=== PATIENT | female | born 1960 | race Two or more races ===

== ENCOUNTER 2020-07-12 10:17 | Outpatient (REF) | payer MEDICARE, MEDICAID, SELFPAY | END 2020-07-12 10:18 | disposition home or self-care (01) | LOC: HO.BBR 10:17 | PROVIDERS: PCP Internal Medicine; Visit Provider Internal Medicine Medical Oncology | DX: D75.1 Secondary polycythemia (principal) | CPT/HCPCS: 85018; 99195 ==

== ENCOUNTER 2020-07-22 10:16 | Outpatient (REF) | payer MEDICARE, MEDICAID, SELFPAY ==
[2020-07-22 11:11] LABS: Hemoglobin 12.4 g/dl (12.0-16.0); Mean Corpuscular HGB Conc 32.6 g/dl (31.0-35.0); Mean Platelet Volume 9.1 fL (9.4-12.3); Platelet Count 268 X10*3/uL (160-400); Red Blood Count 4.13 X10*6/uL (4.20-5.50); Red Cell Distribution Width 13.7 % (11.0-16.0); White Blood Count 3.4 X10*3/uL (4.8-10.8)
[2020-07-22 11:37] LABS: C Reactive Protein 3.93 mg/dL (< or = 0.50)
[2020-07-22 11:38] LABS: Anion Gap 13 (12-20); Blood Urea Nitrogen 9 mg/dL (9-16); Calcium 8.7 mg/dL (8.4-10.2); Carbon Dioxide 28 mmol/L (22-29); Chloride 105 mmol/L (96-108); Estimated Glomerular Filt Rate > 60; Glucose Random 111 mg/dL (60-115); Potassium 4.3 mmol/l (3.3-5.1); Sodium 142 mmol/L (135-145)
[2020-07-22 13:01] LABS: Erythrocyte Sedimentation Rate 37 MM/HR (0-20)
== END 2020-07-22 10:17 | disposition home or self-care (01) ==
LOC: HO.MDS 10:16
PROVIDERS: PCP Internal Medicine; Visit Provider Internal Medicine Gastroenterology
DX: K50.80 Crohn's disease of both small and large intestine without complications (principal)
CPT/HCPCS: 36415; 80048; 85027; 85652; 86140; 96365; 96367; J3380

== ENCOUNTER 2020-09-02 10:30 | Outpatient (REF) | payer MEDICARE, MEDICAID, SELFPAY ==
[2020-09-02 10:54] LABS: Hematocrit 44.1 % (37-47); Hemoglobin 14.5 g/dl (12.0-16.0); Mean Corpuscular HGB Conc 32.9 g/dl (31.0-35.0); Mean Corpuscular Hemoglobin 29.2 pg (27.0-33.0); Mean Corpuscular Volume 88.9 fL (80-98); Mean Platelet Volume 9.2 fL (9.4-12.3); Platelet Count 282 X10*3/uL (160-400); Red Blood Count 4.96 X10*6/uL (4.20-5.50)
[2020-09-02 11:23] LABS: Alanine Aminotransferase 12 U/L (0-31); Albumin Level 4.1 g/dL (3.5-5.0); Alkaline Phosphatase 80 U/L (39-117); Anion Gap 13 (12-20); Aspartate Amino Transferase 14 U/L (5-31); Bilirubin Total 0.7 mg/dL (0.0-1.0); Blood Urea Nitrogen 10 mg/dL (9-16); C Reactive Protein 0.89 mg/dL (< or = 0.50); Calcium 8.9 mg/dL (8.4-10.2); Carbon Dioxide 24 mmol/L (22-29); Chloride 107 mmol/L (96-108); Estimated Glomerular Filt Rate > 60; Glucose Random 95 mg/dL (60-115); Potassium 3.9 mmol/l (3.3-5.1); Sodium 140 mmol/L (135-145); Total Protein 6.9 g/dL (6.5-8.0)
[2020-09-02 11:32] LABS: Erythrocyte Sedimentation Rate 12 MM/HR (0-20)
== END 2020-09-02 10:31 | disposition home or self-care (01) ==
LOC: HO.MDS 10:30
PROVIDERS: PCP Internal Medicine; Visit Provider Internal Medicine Gastroenterology
DX: K50.90 Crohn's disease, unspecified, without complications (principal)
CPT/HCPCS: 36415; 80053; 85027; 85652; 86140; 96365; J3380

== ENCOUNTER 2020-09-08 10:45 | Outpatient (REF) | payer MEDICARE, MEDICAID, SELFPAY | END 2020-09-08 10:46 | disposition home or self-care (01) | LOC: HO.BBR 10:45 | PROVIDERS: Visit Provider Internal Medicine Medical Oncology | DX: D75.1 Secondary polycythemia (principal) | CPT/HCPCS: 85014; 85018; 99195 ==

== ENCOUNTER 2020-10-17 11:34 | Outpatient (REF) | payer MEDICARE, MEDICAID, SELFPAY | END 2020-10-17 11:35 | disposition home or self-care (01) | LOC: HO.BBR 11:34 | PROVIDERS: Visit Provider Internal Medicine Medical Oncology | DX: Z13.89 Encounter for screening for other disorder (principal) | CPT/HCPCS: 36415; 85018; 96365; 99195 ==

== ENCOUNTER 2020-10-17 12:30 | Outpatient (REF) | payer MEDICARE, MEDICAID, SELFPAY ==
[2020-10-17 12:56] LABS: Hematocrit 43.5 % (37-47); Hemoglobin 14.2 g/dl (12.0-16.0); Mean Corpuscular HGB Conc 32.6 g/dl (31.0-35.0); Mean Corpuscular Hemoglobin 28.4 pg (27.0-33.0); Mean Platelet Volume 9.5 fL (9.4-12.3); Platelet Count 320 X10*3/uL (160-400); Red Cell Distribution Width 15.1 % (11.0-16.0)
[2020-10-17 13:17] LABS: Alanine Aminotransferase 9 U/L (0-31); Albumin Level 4.1 g/dL (3.5-5.0); Alkaline Phosphatase 78 U/L (39-117); Anion Gap 14 (12-20); Aspartate Amino Transferase 12 U/L (5-31); Bilirubin Total 0.5 mg/dL (0.0-1.0); Blood Urea Nitrogen 13 mg/dL (9-16); C Reactive Protein 0.49 mg/dL (< or = 0.50); Calcium 9.6 mg/dL (8.4-10.2); Carbon Dioxide 26 mmol/L (22-29); Chloride 106 mmol/L (96-108); Estimated Glomerular Filt Rate > 60; Glucose Random 97 mg/dL (60-115); Potassium 4.5 mmol/l (3.3-5.1); Sodium 141 mmol/L (135-145)
[2020-10-17 13:38] LABS: Erythrocyte Sedimentation Rate 7 MM/HR (0-20)
== END 2020-10-17 12:31 | disposition home or self-care (01) ==
LOC: HO.MDS 12:30
PROVIDERS: Visit Provider Internal Medicine Gastroenterology
DX: K50.80 Crohn's disease of both small and large intestine without complications (principal)
CPT/HCPCS: 36415; 80053; 85018; 85027; 85652; 86140; 96365; 99195; J3380

== ENCOUNTER 2020-11-16 10:52 | Outpatient (REF) | payer MEDICARE, MEDICAID, SELFPAY | END 2020-11-16 10:53 | disposition home or self-care (01) | LOC: HO.BBR 10:52 | PROVIDERS: Visit Provider Internal Medicine Medical Oncology | DX: D75.1 Secondary polycythemia (principal) | CPT/HCPCS: 36415; 85018 ==

== ENCOUNTER 2020-12-07 10:55 | Outpatient (REF) | payer MEDICARE, MEDICAID, SELFPAY ==
[2020-12-07 11:24] LABS: Hematocrit 40.8 % (37-47); Hemoglobin 13.3 g/dl (12.0-16.0); Mean Corpuscular HGB Conc 32.6 g/dl (31.0-35.0); Mean Corpuscular Hemoglobin 28.2 pg (27.0-33.0); Mean Corpuscular Volume 86.4 fL (80-98); Mean Platelet Volume 9.1 fL (9.4-12.3); Platelet Count 243 X10*3/uL (160-400); Red Blood Count 4.72 X10*6/uL (4.20-5.50); Red Cell Distribution Width 15.9 % (11.0-16.0); White Blood Count 5.2 X10*3/uL (4.8-10.8)
[2020-12-07 11:54] LABS: Alanine Aminotransferase 11 U/L (0-31); Alkaline Phosphatase 84 U/L (39-117); Anion Gap 11 (12-20); Aspartate Amino Transferase 13 U/L (5-31); Bilirubin Total 0.4 mg/dL (0.0-1.0); Blood Urea Nitrogen 15 mg/dL (9-16); C Reactive Protein 0.42 mg/dL (< or = 0.50); Calcium 9.6 mg/dL (8.4-10.2); Carbon Dioxide 26 mmol/L (22-29); Chloride 108 mmol/L (96-108); Estimated Glomerular Filt Rate > 60; Glucose Random 88 mg/dL (60-115); Potassium 3.9 mmol/L (3.3-5.1); Sodium 141 mmol/L (135-145); Total Protein 6.8 g/dL (6.5-8.0)
[2020-12-07 12:44] LABS: Erythrocyte Sedimentation Rate 7 MM/HR (0-20)
== END 2020-12-07 10:56 | disposition home or self-care (01) ==
LOC: HO.MDS 10:55
PROVIDERS: Visit Provider Internal Medicine Gastroenterology
DX: K50.80 Crohn's disease of both small and large intestine without complications (principal)
CPT/HCPCS: 36415; 80053; 85027; 85652; 86140; 96365; J3380

== ENCOUNTER 2020-12-15 11:52 | Outpatient (REF) | payer MEDICARE, MEDICAID, SELFPAY | END 2020-12-15 11:53 | disposition home or self-care (01) | LOC: HO.BBR 11:52 | PROVIDERS: Visit Provider Internal Medicine Medical Oncology | DX: D75.1 Secondary polycythemia (principal) | CPT/HCPCS: 36415; 85018; 99195 ==

== ENCOUNTER 2021-01-11 10:02 | Outpatient (REF) | payer MEDICARE, MEDICAID, SELFPAY | END 2021-01-11 10:03 | disposition home or self-care (01) | LOC: HO.BBR 10:02 | PROVIDERS: Visit Provider Internal Medicine Medical Oncology | DX: D75.1 Secondary polycythemia (principal) | CPT/HCPCS: 36415; 85018 ==

== ENCOUNTER 2021-01-26 12:00 | Outpatient (REF) | payer MEDICARE, MEDICAID, SELFPAY ==
[2021-01-26 12:50] LABS: Alanine Aminotransferase 13 U/L (0-31); Albumin Level 3.9 g/dL (3.5-5.0); Alkaline Phosphatase 87 U/L (39-117); Anion Gap 11 (12-20); Aspartate Amino Transferase 15 U/L (5-31); Bilirubin Total 0.6 mg/dL (0.0-1.0); Blood Urea Nitrogen 13 mg/dL (9-16); C Reactive Protein 0.49 mg/dL (< or = 0.50); Carbon Dioxide 24 mmol/L (22-29); Chloride 110 mmol/L (96-108); Estimated Glomerular Filt Rate > 60; Glucose Random 92 mg/dL (60-115); Potassium 4.2 mmol/L (3.3-5.1); Sodium 141 mmol/L (135-145); Total Protein 6.7 g/dL (6.5-8.0)
[2021-01-26 13:18] LABS: Erythrocyte Sedimentation Rate 12 MM/HR (0-20)
== END 2021-01-26 12:01 | disposition home or self-care (01) ==
LOC: HO.MDS 12:00
PROVIDERS: Visit Provider Internal Medicine Gastroenterology
DX: K50.80 Crohn's disease of both small and large intestine without complications (principal)
CPT/HCPCS: 36415; 80053; 85652; 86140; 96365; 96375; J3380

== ENCOUNTER 2021-02-09 11:04 | Outpatient (REF) | payer MEDICARE, MEDICAID, SELFPAY | END 2021-02-09 11:05 | disposition home or self-care (01) | LOC: HO.BBR 11:04 | PROVIDERS: Visit Provider Internal Medicine Medical Oncology | DX: D75.1 Secondary polycythemia (principal) | CPT/HCPCS: 36415; 85018 ==

== ENCOUNTER 2021-03-08 09:50 | Outpatient (REF) | payer MEDICARE, MEDICAID, SELFPAY | END 2021-03-08 09:51 | disposition home or self-care (01) | LOC: HO.BBR 09:50 | PROVIDERS: Visit Provider Internal Medicine Medical Oncology | DX: D75.1 Secondary polycythemia (principal) | CPT/HCPCS: 85014; 85018; 99195 ==

== ENCOUNTER 2021-03-09 11:57 | Outpatient (REF) | payer MEDICARE, MEDICAID, SELFPAY ==
[2021-03-09 12:17] LABS: Hemoglobin 13.4 g/dl (12.0-16.0); Mean Corpuscular HGB Conc 32.7 g/dl (31.0-35.0); Mean Corpuscular Hemoglobin 28.6 pg (27.0-33.0); Mean Corpuscular Volume 87.6 fL (80-98); Mean Platelet Volume 9.4 fL (9.4-12.3); Platelet Count 277 X10*3/uL (160-400); Red Blood Count 4.68 X10*6/uL (4.20-5.50); Red Cell Distribution Width 16.1 % (11.0-16.0); White Blood Count 5.4 X10*3/uL (4.8-10.8)
[2021-03-09 13:01] LABS: Erythrocyte Sedimentation Rate 10 MM/HR (0-20)
[2021-03-09 13:34] LABS: Alanine Aminotransferase < 6 U/L (0-31); Albumin Level 4.1 g/dL (3.5-5.0); Alkaline Phosphatase 90 U/L (39-117); Anion Gap 9 (12-20); Aspartate Amino Transferase 11 U/L (5-31); Bilirubin Total 0.3 mg/dL (0.0-1.0); Blood Urea Nitrogen 10 mg/dL (9-16); C Reactive Protein 0.43 mg/dL (< or = 0.50); Calcium 9.5 mg/dL (8.4-10.2); Carbon Dioxide 29 mmol/L (22-29); Chloride 107 mmol/L (96-108); Estimated Glomerular Filt Rate > 60; Glucose Random 96 mg/dL (60-115); Potassium 4.3 mmol/L (3.3-5.1); Sodium 141 mmol/L (135-145); Total Protein 6.8 g/dL (6.5-8.0)
== END 2021-03-09 11:58 | disposition home or self-care (01) ==
LOC: HO.MDS 11:57
PROVIDERS: Visit Provider Internal Medicine Gastroenterology
DX: K50.80 Crohn's disease of both small and large intestine without complications (principal)
CPT/HCPCS: 36415; 80053; 85027; 85652; 86140; 86481; 96365; 96375; J3380

== ENCOUNTER 2021-04-07 09:58 | Outpatient (REF) | payer MEDICARE, MEDICAID, SELFPAY | END 2021-04-07 09:59 | disposition home or self-care (01) | LOC: HO.BBR 09:58 | PROVIDERS: Visit Provider Internal Medicine Medical Oncology | DX: D75.1 Secondary polycythemia (principal) | CPT/HCPCS: 36415; 85018 ==

== ENCOUNTER 2021-05-01 10:57 | Outpatient (REF) | payer MEDICARE, MEDICAID, SELFPAY ==
[2021-05-01 11:30] LABS: Hematocrit 42.1 % (37-47); Hemoglobin 13.5 g/dl (12.0-16.0); Mean Corpuscular HGB Conc 32.1 g/dl (31.0-35.0); Mean Corpuscular Volume 87.2 fL (80-98); Mean Platelet Volume 9.6 fL (9.4-12.3); Platelet Count 278 X10*3/uL (160-400); Red Blood Count 4.83 X10*6/uL (4.20-5.50); Red Cell Distribution Width 16.1 % (11.0-16.0); White Blood Count 5.3 X10*3/uL (4.8-10.8)
[2021-05-01 11:51] LABS: Alanine Aminotransferase 10 U/L (0-31); Albumin Level 3.8 g/dL (3.5-5.0); Alkaline Phosphatase 83 U/L (39-117); Anion Gap 13 (12-20); Aspartate Amino Transferase 14 U/L (5-31); Bilirubin Total 0.3 mg/dL (0.0-1.0); Blood Urea Nitrogen 11 mg/dL (9-16); Calcium 8.9 mg/dL (8.4-10.2); Carbon Dioxide 24 mmol/L (22-29); Chloride 108 mmol/L (96-108); Estimated Glomerular Filt Rate > 60; Glucose Random 100 mg/dL (60-115); Potassium 4.6 mmol/L (3.3-5.1); Sodium 140 mmol/L (135-145); Total Protein 6.5 g/dL (6.5-8.0)
[2021-05-01 12:20] LABS: Erythrocyte Sedimentation Rate 7 MM/HR (0-20)
[2021-05-03 20:10] LABS: TS Negative Control Passed; TS Panel A 1; TS Panel B 0; TS Positive Control Passed; TSpotTB Negative (SeeBelow)
== END 2021-05-01 10:58 | disposition home or self-care (01) ==
LOC: HO.MDS 10:57
PROVIDERS: Visit Provider Internal Medicine Gastroenterology
DX: K50.90 Crohn's disease, unspecified, without complications (principal)
CPT/HCPCS: 36415; 80053; 85027; 85652; 86140; 86481; 96365; J3380

== ENCOUNTER → 2021-05-02 10:42 | Outpatient (BNVA) | payer MEDICARE, MEDICAID, SELFPAY | PROVIDERS: Visit Provider Internal Medicine Gastroenterology | DX: R09.89 Other specified symptoms and signs involving the circulatory and respiratory systems (principal) | CPT/HCPCS: 99212 ==

== ENCOUNTER 2021-05-04 09:32 | Outpatient (REF) | payer MEDICARE, MEDICAID, SELFPAY ==
--- NOTE | ~2021-05-04 | FL_ITS ---
EXAMINATION: FL BARIUM SWALLOW CLINICAL INFORMATION: Abdominal pain. COMPARISON: None TECHNIQUE: Barium swallow examination is performed using fluoroscopic evaluation in addition to multiple fluoroscopic spot views. The patient is imaged both upright and prone and using both thick and thin sulfate along with effervescent granules. Fluoroscopy time: 1.8 minutes DAP: 10.885 Gycm2 Images: 48 FINDINGS: Following oral administration of thick barium and effervescent granules, there is normal propagation of bolus from the oral cavity through the pharynx, esophagus into stomach without any evidence of obstruction, narrowing or stricture. There is mild mural thickening involving the posterior distal esophagus at the GE junction suspicious for edema or underlying lesion. On oral administration of thin barium in prone lying position, there is good distention of the esophagus without narrowing. There is a small reducible hiatal hernia without reflux. The rest of the visualized mucosal pattern of the esophagus is unremarkable. FL/FL barium swallow IMPRESSION: Small sliding hiatal hernia without hiatal hernia. There is a small irregularity along the distal esophageal wall, question underlying lesion versus small hiatal hernia. No gastroesophageal reflux visualized. No esophageal obstruction.
== END 2021-05-04 09:33 | disposition home or self-care (01) ==
LOC: HO.XRAY 09:32
PROVIDERS: Visit Provider Internal Medicine Gastroenterology
DX: R09.89 Other specified symptoms and signs involving the circulatory and respiratory systems (principal)
CPT/HCPCS: 74220

== ENCOUNTER 2021-05-08 10:54 | Outpatient (REF) | payer MEDICARE, MEDICAID, SELFPAY | END 2021-05-08 10:55 | disposition home or self-care (01) | LOC: HO.BBR 10:54 | PROVIDERS: Visit Provider Internal Medicine Medical Oncology | DX: D75.1 Secondary polycythemia (principal) | CPT/HCPCS: 36415; 85018; 99195 ==

== ENCOUNTER 2021-05-30 12:09 | Outpatient (REF) | payer MEDICARE, MEDICAID, SELFPAY ==
--- NOTE | ~2021-05-30 | CT_ITS ---
EXAMINATION: CT ENTEROGRAPHY ABDOMEN AND PELVIS WITH CONTRAST CLINICAL INFORMATION: Periumbilical pain. COMPARISON: Previous CT scan January 2019 and abdominal ultrasound March 2020 TECHNIQUE: Study performed with oral VoLumen (1350 mL) and 480 mL of water to distend the abdomen. The patient was injected with 85 mL Omnipaque 350 intravenous contrast which was administered without adverse effect. Coronal and sagittal reformatted images were obtained at the technologist's workstation. This CT examination was performed using dose optimization techniques as appropriate, variously including the following: *Automated exposure control *Adjustment of mA and/or kV according to patient size (this includes techniques or standardized protocols for targeted exams where dose is matched to indication/reason for exam; i.e. extremities or head) *Use of iterative reconstruction technique DLP: 386 mGy-cm FINDINGS: GASTROINTESTINAL FINDINGS: Stomach: Well-distended and normal in appearance. Small intestine: Satisfactorily distended and normal in appearance. Large intestine: There is question of mild wall thickening of the distal colon/colitis. No perirectal changes demonstrated. The appendix is normal. Additional findings: No abnormal enhancement of the vasa recta or significant mesenteric or retroperitoneal lymphadenopathy is seen. No abdominal abscess or fistulous tract demonstrated. ABDOMINAL AND PELVIC CT FINDINGS: Liver, gallbladder, biliary tract: There is a 1 cm enhancing lesion in the right lobe of the liver that is stable and probably represents a benign hemangioma. No other focal liver lesion is seen. There is a 5 mm round high attenuation area in the fundus of the gallbladder questionable for a polyp or phrygian cap. This is unchanged from previous CT scan. Pancreas: Normal. Spleen: There is a 2.6 cm cyst spleen and second 5 mm cyst in the spleen that is stable. Adrenal glands and kidneys: There is a stable 1.6 x 2.8 cm left adrenal nodule. This has negative Hounsfield units pre-IV contrast consistent with a benign lipid rich adenoma. There is a small 1 to 2 mm stone in the upper pole of the left kidney. There is a small 1 cm cyst in the upper pole of the left kidney. The right kidney is unremarkable. The collecting systems are normal. Ureters and bladder: Normal. The uterus appears to have been removed. No pelvic mass is seen. Lymphovascular structures: Normal. Bones: Normal. Lung bases: Normal. CT/CT enterography IMPRESSION: Question mild wall thickening of the colon/colitis. Otherwise stable findings from January [address] scan.
[2021-05-30] MEDS: iohexoL 350 MG/ML 100 ML INFUS..BTL IV (13:59)
[2021-05-30] MEDS: Sorbitol/Mannit/Xanth Imaging 500 ML LIQUID 1500 ML PO (14:00)
== END 2021-05-30 12:10 | disposition home or self-care (01) ==
LOC: HO.US 12:09
PROVIDERS: PCP Internal Medicine; Visit Provider Internal Medicine Gastroenterology
DX: R10.33 Periumbilical pain (principal)
CPT/HCPCS: 74177; Q9967

== ENCOUNTER 2021-06-07 11:57 | Outpatient (REF) | payer MEDICARE, MEDICAID, SELFPAY | END 2021-06-07 11:58 | disposition home or self-care (01) | LOC: HO.BBR 11:57 | PROVIDERS: Visit Provider Internal Medicine Medical Oncology | DX: D75.1 Secondary polycythemia (principal) | CPT/HCPCS: 85014; 85018; 99195 ==

== ENCOUNTER 2021-06-08 13:29 | Outpatient (REF) | payer MEDICARE, MEDICAID, SELFPAY ==
[2021-06-14 01:26] LABS: Calprotectin, Fecal 17 mcg/g
== END 2021-06-08 13:30 | disposition home or self-care (01) ==
LOC: HO.LNP 13:29
PROVIDERS: Visit Provider Internal Medicine Gastroenterology
DX: K50.919 Crohn's disease, unspecified, with unspecified complications (principal)
CPT/HCPCS: 83993; 87045; 87046; 87493

== ENCOUNTER 2021-06-12 11:25 | Outpatient (REF) | payer MEDICARE, MEDICAID, SELFPAY ==
[2021-06-12 11:49] LABS: MANUAL DIFF FLAG NO
[2021-06-12 11:53] LABS: Basophils Percent Auto 0.5 % (0-2); Eosinophils Absolute Auto 0.1 X10*3/uL (0.0-0.4); Eosinophils Percent Auto 1.6 % (0-4); Hemoglobin 14.2 g/dl (12.0-16.0); Imm Gran Abs Auto 0.01 X10*3/uL (0.00-0.03); Imm Gran Pct Auto 0.2 % (0.0-0.4); Lymphocytes Absolute Auto 1.3 X10*3/uL (1.2-4.9); Lymphocytes Percent Auto 21.1 % (20-40); Mean Corpuscular Hemoglobin 28.6 pg (27.0-33.0); Mean Corpuscular Volume 86.5 fL (80-98); Mean Platelet Volume 9.2 fL (9.4-12.3); Monocytes Absolute Auto 0.3 X10*3/uL (0.1-1.2); Neutrophils Absolute Auto 4.5 X10*3/uL (2.0-8.3); Neutrophils Percent Auto 71.6 % (45-73); Platelet Count 238 X10*3/uL (160-400); Red Blood Count 4.97 X10*6/uL (4.20-5.50); Red Cell Distribution Width 16.2 % (11.0-16.0); White Blood Count 6.2 X10*3/uL (4.8-10.8)
[2021-06-12 12:08] LABS: C Reactive Protein 0.63 mg/dL (< or = 0.50)
[2021-06-12 12:10] LABS: Alanine Aminotransferase 7 U/L (0-31); Alkaline Phosphatase 86 U/L (39-117); Anion Gap 10 (12-20); Aspartate Amino Transferase 12 U/L (5-31); Bilirubin Total 0.4 mg/dL (0.0-1.0); Blood Urea Nitrogen 10 mg/dL (9-16); Calcium 9.3 mg/dL (8.4-10.2); Carbon Dioxide 27 mmol/L (22-29); Chloride 110 mmol/L (96-108); Estimated Glomerular Filt Rate > 60; Glucose Random 93 mg/dL (60-115); Potassium 4.6 mmol/L (3.3-5.1); Sodium 142 mmol/L (135-145); Total Protein 6.9 g/dL (6.5-8.0)
[2021-06-12 12:52] LABS: Erythrocyte Sedimentation Rate 11 MM/HR (0-20)
== END 2021-06-12 11:26 | disposition home or self-care (01) ==
LOC: HO.MDS 11:25
PROVIDERS: Visit Provider Internal Medicine Gastroenterology
DX: K50.90 Crohn's disease, unspecified, without complications (principal)
CPT/HCPCS: 36415; 80053; 85025; 85652; 86140; 96365; 96375; J1200; J3380

== ENCOUNTER 2021-07-07 12:03 | Outpatient (REF) | payer MEDICARE, MEDICAID, SELFPAY | END 2021-07-07 12:04 | disposition home or self-care (01) | LOC: HO.BBR 12:03 | PROVIDERS: PCP Internal Medicine; Visit Provider Internal Medicine Medical Oncology | DX: D75.1 Secondary polycythemia (principal) | CPT/HCPCS: 85018; 99195 ==

== ENCOUNTER 2021-07-24 13:41 | Outpatient (REF) | payer MEDICARE, MEDICAID, SELFPAY ==
[2021-07-24 14:04] LABS: Hematocrit 40.2 % (37-47); Hemoglobin 13.5 g/dl (12.0-16.0); Mean Corpuscular HGB Conc 33.6 g/dl (31.0-35.0); Mean Corpuscular Hemoglobin 28.7 pg (27.0-33.0); Mean Corpuscular Volume 85.5 fL (80-98); Mean Platelet Volume 9.4 fL (9.4-12.3); Platelet Count 256 X10*3/uL (160-400); Red Cell Distribution Width 15.9 % (11.0-16.0); White Blood Count 5.7 X10*3/uL (4.8-10.8)
[2021-07-24 14:21] LABS: Alanine Aminotransferase 8 U/L (0-31); Alkaline Phosphatase 80 U/L (39-117); Anion Gap 10 (12-20); Aspartate Amino Transferase 11 U/L (5-31); Bilirubin Total 0.5 mg/dL (0.0-1.0); Blood Urea Nitrogen 9 mg/dL (9-16); C Reactive Protein 0.26 mg/dL (< or = 0.50); Calcium 9.1 mg/dL (8.4-10.2); Carbon Dioxide 26 mmol/L (22-29); Chloride 109 mmol/L (96-108); Estimated Glomerular Filt Rate > 60; Glucose Random 102 mg/dL (60-115); Sodium 141 mmol/L (135-145); Total Protein 6.9 g/dL (6.5-8.0)
[2021-07-24 15:04] LABS: Erythrocyte Sedimentation Rate 10 MM/HR (0-20)
== END 2021-07-24 13:42 | disposition home or self-care (01) ==
LOC: HO.MDS 13:41
PROVIDERS: Visit Provider Internal Medicine Gastroenterology
DX: K50.90 Crohn's disease, unspecified, without complications (principal)
CPT/HCPCS: 36415; 80053; 85027; 85652; 86140; 96365; J1200; J3380

== ENCOUNTER → 2021-07-28 10:56 | Outpatient (BNVA) | payer MEDICARE, MEDICAID, SELFPAY | PROVIDERS: PCP Internal Medicine; Visit Provider Internal Medicine Gastroenterology | CPT/HCPCS: Q3014 ==

== ENCOUNTER 2021-08-09 10:56 | Outpatient (REF) | payer MEDICARE, MEDICAID, SELFPAY | END 2021-08-09 10:57 | disposition home or self-care (01) | LOC: HO.BBR 10:56 | PROVIDERS: Visit Provider Internal Medicine Medical Oncology | DX: D75.1 Secondary polycythemia (principal) | CPT/HCPCS: 85014; 85018; 99195 ==

== ENCOUNTER 2021-08-22 11:08 | Emergency (ER) | payer MEDICARE, MEDICAID, SELFPAY ==
[2021-08-22 12:01] VITALS: BP 111/73; PULSE 130; RESP 18; TEMP 37.6; O2SAT 98; BMI 26.9
== END 2021-08-22 20:00 | disposition left against medical advice (07) ==
PROVIDERS: Emergency Provider Emergency Medicine; PCP Internal Medicine
DX: R11.10 Vomiting, unspecified (principal); R42 Dizziness and giddiness
CPT/HCPCS: 99281

== ENCOUNTER 2021-09-05 12:29 | Outpatient (REF) | payer MEDICARE, MEDICAID, SELFPAY ==
[2021-09-05 13:21] LABS: MANUAL DIFF FLAG NO
[2021-09-05 13:24] LABS: Basophils Percent Auto 0.1 % (0-2); Eosinophils Absolute Auto 0.1 X10*3/uL (0.0-0.4); Eosinophils Percent Auto 1.7 % (0-4); Hematocrit 39.1 % (37.0-47.0); Hemoglobin 12.6 g/dl (12.0-16.0); Imm Gran Abs Auto 0.02 X10*3/uL (0.00-0.03); Imm Gran Pct Auto 0.2 % (0.0-0.4); Lymphocytes Absolute Auto 1.5 X10*3/uL (1.2-4.9); Mean Corpuscular HGB Conc 32.2 g/dl (31.0-35.0); Mean Corpuscular Hemoglobin 28.4 pg (27.0-33.0); Mean Corpuscular Volume 88.1 fL (80.0-98.0); Mean Platelet Volume 9.2 fL (9.4-12.3); Monocytes Absolute Auto 0.4 X10*3/uL (0.1-1.2); Monocytes Percent Auto 4.5 % (2-11); Neutrophils Percent Auto 74.5 % (45-73); Platelet Count 276 X10*3/uL (160-400); Red Blood Count 4.44 X10*6/uL (4.20-5.50); Red Cell Distribution Width 16.1 % (11.0-16.0); White Blood Count 8.1 X10*3/uL (4.8-10.8)
[2021-09-05 13:43] LABS: Alanine Aminotransferase 7 U/L (0-31); Albumin Level 3.8 g/dL (3.5-5.0); Alkaline Phosphatase 71 U/L (39-117); Anion Gap 11 (12-20); Aspartate Amino Transferase 12 U/L (5-31); Bilirubin Total 0.6 mg/dL (0.0-1.0); Blood Urea Nitrogen 10 mg/dL (9-16); C Reactive Protein 0.22 mg/dL (< or = 0.50); Calcium 9.3 mg/dL (8.4-10.2); Carbon Dioxide 26 mmol/L (22-29); Chloride 110 mmol/L (96-108); Estimated Glomerular Filt Rate > 60; Glucose Random 91 mg/dL (60-115); Potassium 4.2 mmol/L (3.3-5.1); Sodium 143 mmol/L (135-145); Total Protein 6.6 g/dL (6.5-8.0)
[2021-09-05 14:16] LABS: Erythrocyte Sedimentation Rate 11 MM/HR (0-20)
== END 2021-09-05 12:30 | disposition home or self-care (01) ==
LOC: HO.MDS 12:29
PROVIDERS: Visit Provider Internal Medicine Gastroenterology
DX: K50.90 Crohn's disease, unspecified, without complications (principal)
CPT/HCPCS: 36415; 80053; 85025; 85652; 86140; 96365; 96375; J1200; J3380

== ENCOUNTER 2021-11-01 09:11 | Day surgery (SDC) | payer MEDICARE, MEDICAID, SELFPAY ==
[2021-10-27 13:02] VITALS: BMI 26.9
--- NOTE | 2021-10-31 11:09 | P.CONAN_ITS ---
Documented by User: Birdie Danielson NP 10/31/21 11:11 HPI - Anesthesia Eval Consult details Narrative: 61yo F for Sigmoidoscopy Flexible, Upper Endoscopy PMFSH Active Problems Active Problems: All Active Problems (Updated 10/27/21 @ 12:57 by Dahiana Lehman, RN) Erythrocytosis (Acute) Globus sensation (Acute) Crohn's disease (Acute) Past Medical History Medical History Anxiety Back pain at L4-L5 level Crohn's disease Depression H/O hematuria Migraines Nausea and vomiting Neck pain Family History Family History Father No problems noted. Mother Hx of acute heart failure Surgical History Surgical History H/O brain surgery H/O hand surgery H/O removal of cyst History of colonoscopy History of partial hysterectomy Hx of breast reduction, elective Hx of endoscopy Social History Social History Household Members: Children Housing: House Are you a primary mall plant caretaker to a significant other at home: No Do you presently have visiting nurse or other home services: Yes ([employer] with [employer]) Patient Tobacco Use Status: Current everyday Tobacco user Tobacco use type: Cigarette Cigarettes Per Day: 2 Smoked in Last 30 Days: Yes Use of substances other than those prescribed or required for medical reasons: Yes Substance Use Type: Marijuana Substance Use Frequency: Daily Have you been hit, kicked, punched, or otherwise hurt by someone within the past year? If so, by whom?: No Are you DNR?: No Advance Directives: No Advance Directives Information Provided: Yes Advance Directives on File: No Recently lost weight without trying: Yes How much weight loss: 2-13 pounds Meds Allergies Allergy/AdvReac Type Severity Reaction Status Date / Time aspirin [ASA] Allergy Mild GI UPSET, Verified 10/27/21 13:02 nausea and vomiting Home Medications Medication Instructions Recorded Confirmed Last Taken Type fluticasone 2 puff 07/21/20 10/27/21 Unknown History propionate 110 INHALATION BID mcg/actuation HFA aerosol inhaler (Flovent HFA) galcanezumab-gnlm 120 mg SUBCUT 07/21/20 10/27/21 Unknown History 120 mg/mL QMONTH subcutaneous pen injector (Emgality Pen) omeprazole 40 mg 1 cap PO DAILY 07/21/20 10/27/21 Unknown History capsule,delayed release fluoride (sodium) 1 appl DENTAL 07/28/21 09/14/21 Unknown History 1.1 % dental gel DAILY (DentaGel) vedolizumab 300 300 mg IV Q6W 10/27/21 10/27/21 Unknown History mg intravenous solution (Entyvio) Exam Exam Date and Time: October 31, 2021 1109 Height,Weight and Vital Signs: Height 5 ft 2 in Weight 66.678 kg Pertinent Lab Results Pertinent Lab Results: Laboratory Tests 09/14/21 09/14/21 11:49 11:49 WBC 3.9 L Hgb 13.0 Hct 40.3 Plt Count 279 Sodium 143 Potassium 3.8 Chloride 110 H Carbon Dioxide 28 BUN 9 Creatinine 0.65 Assessment and Plan Assessment Anesthesia Assessment: Chart Reviewed Documented by User: Mela Strickland MD 11/01/21 10:59 [facility] Past Medical History Medical History Anxiety Back pain at L4-L5 level Crohn's disease Depression H/O hematuria Migraines Nausea and vomiting Neck pain Family History Family History Father No problems noted. 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 If so, by whom?: No Are you DNR?: No Advance Directives: No Advance Directives Information Provided: Yes Advance Directives on File: No Recently lost weight without trying: Yes How much weight loss: 2-13 pounds Meds Allergies Allergy/AdvReac Type Severity Reaction Status Date / Time aspirin [ASA] Allergy Mild GI UPSET, Verified 10/27/21 13:02 nausea and vomiting Home Medications Medication Instructions Recorded Confirmed Last Taken Type fluticasone 2 puff 07/21/20 10/27/21 Unknown History propionate 110 INHALATION BID mcg/actuation HFA aerosol inhaler (Flovent HFA) galcanezumab-gnlm 120 mg SUBCUT 07/21/20 10/27/21 Unknown History 120 mg/mL QMONTH subcutaneous pen injector (Emgality Pen) omeprazole 40 mg 1 cap PO DAILY 07/21/20 10/27/21 Unknown History capsule,delayed release fluoride (sodium) 1 appl DENTAL 07/28/21 09/14/21 Unknown History 1.1 % dental gel DAILY (DentaGel) vedolizumab 300 300 mg IV Q6W 10/27/21 10/27/21 Unknown History mg intravenous solution (Entyvio) Exam Airway Mallampati Class: II Neck ROM: Full Loose/Missing/Broken Teeth: Yes and Upper Heart: RRR Lungs: CTA Assessment and Plan Assessment Anesthesia Assessment: Anesthesia Plan Discussed Final Anesthetic Review History of Problems with Anesthesia: No NPO: Yes ASA Class: II Final Preanesthetic Review: Meds/Allgs Chart Reviewed, Consent Obtained/Reviewed and Anes Risks/Benef Reviewed Patient Risk: Low Procedure Risk: Low Anesthetic Plan Anesthetic Plan: MAC: Disposition: Standard PACU
[2021-11-01 09:57] VITALS: BP 112/65; PULSE 70; RESP 18; TEMP 36.2; O2SAT 99
[2021-11-01] MEDS: Sodium Phosphate,Mono-Dibasic 133 ML ENEMA 266 ML PR (10:22)
[2021-11-01] MEDS: Sodium Phosphate,Mono-Dibasic 133 ML ENEMA PR (10:24)
--- NOTE | 2021-11-01 10:38 | P.HPSUR_ITS ---
Pre-Procedural Eval Section A Date of Service: 11/01/21 Section B Chief Complaint: Crohns Disease,Dysphagia Relevant Family History (Specify if Yes): No Relevant Social History: Tobacco Use Present Medications: see Short Stay Collaborative assessment Medical History: Significant History (Anxiety Back pain at L4-L5 level Crohn's disease Depression H/O hematuria Migraines Nausea and vomiting Neck pain) History of Previous Operations: Relevant previous surgery/procedure and date(s) (H/O brain surgery H/O hand surgery H/O removal of cyst History of colonoscopy History of partial hysterectomy Hx of breast reduction, elective Hx of endoscopy) Allergies: Allergies Allergy/AdvReac Type Severity Reaction Status Date / Time aspirin [ASA] Allergy Mild GI UPSET, Verified 10/27/21 13:02 nausea and vomiting Review of Systems Sugical H&P ROS: Negative: Constitution, Cardiovascular, Respiratory, Neurological, Psychiatric, Hem-Onc, Allergic/Immunologic, Gastrointestinal, Genitourinary, Musculoskeletal, Integumentary, Endocrine and Eyes/Ears/Nose/Thro at Exam Surgical H&P Exam: Normal: HEENT, Normal: Heart, Normal: Lungs, Normal: Extremities, Normal: Abdomen, Normal: Skin and Normal: Neurological Plan Diagnosis/Plan: Unchanged I have reviewed the history and physical and performed a pertinent physical examination on my patient. No changes have occurred unless specified.
[2021-11-01] MEDS: Lactated Ringers 1,000 ML 100 ML IVCONT (10:47)
--- NOTE | 2021-11-01 11:09 | PM.OP ---
Brief Operative Note Date of Service: 11/01/21 Pre-op diagnosis: dysphagia, hx of crohns disease Post-op diagnosis: same Procedure: see op note Surgeon: Agustin Eden MD Anesthesia: MAC Was an Irrigating Pump Operator used for this Procedure?: No Estimated blood loss (mL): 0 Condition: stable Disposition: PACU
--- NOTE | 2021-11-01 11:09 | W.PM.OPN ---
Operative Note Operative Note Date of Service: 11/01/21 Narrative: Operative Information Procedure Description: EGD, Colonoscopy FLEXIBLE TRANSORAL UPPER GASTROINTESTINAL ENDOSCOPY AND Sigmoidoscopy PROCEDURE NOTE UPPER ENDOSCOPY Consent: Indications for the procedure and potential complications of bleeding, perforation, reaction to medications and missed diagnosis were discussed with the patient and informed consent was obtained. Instrument: Olympus GIF H 190 J mid size upper endoscope Monitoring: Vital signs and clinical assessment, continuous EKG monitoring, Pulse oximetry, Carbon Dioxide monitoring and blood pressure monitoring were done throughout the procedure. Procedure: The patient was placed in the left lateral decubitis position and pre-procedure medications were administered and a bite block was placed. The endoscope was inserted into the mouth and advanced under direct vision to the third part of duodenum. A careful inspection was made as the upper endoscope was withdrawn including a retroflexed examination of the proximal stomach; Findings and interventions are described below. Findings: Larynx:normal Esophagus: GE junction at 34 cm, diaphragm hiatus at 36 cm, consistent with 2 cm sliding hiatal hernia, random esophagus bx taken. Balloon dilation at LES and UES to 19 mm, no tears seen. Stomach: Mild patchy gastritis. Biopsies were obtained. Grade 2 flap valve on retroflexed examination of the cardia. At the pylorus there was a polypoid lesion vs prominent fold which was bulging into the duodenum- removed with hot snare--measured about 12-15 mm then retrieved with net. Duodenum: Mild patchy erythema, bx taken Intervention: Biopsies as noted above Sigmoidoscopy Instrument:as above Monitoring: Vital signs and clinical assessment, continuous EKG monitoring, Pulse oximetry, Carbon Dioxide monitoring and blood pressure monitoring were done throughout the procedure. Procedure: The patient was placed in the left lateral decubitis position and pre-procedure medications were administered. After a digital rectal examination of the ano-rectum, the video colonoscope was inserted into the rectum and advanced through the descending colon The colonoscope was slowly withdrawn in a retrograde panoramic fashion and the colon mucosa was carefully examined including a retroflexed view of the rectum. Findings and interventions are described below. Procedure Difficulty: easy Findings: Descending Colon:normal Sigmoid Colon: normal Rectum: Retroflexion with small internal hemorrhoids, grade I Anorectum - normal Impression and Post Procedure Diagnosis: Endoscopy Findings: gastritis hiatal hernia duodenitis gastric polyp maybe gastric inflammatory fibroid polyp Sigmoidoscopy Findings: internal hemorrhoids Plan: Await Pathology results, may need repeat EGD pending path confirm if taking PPI High fiber diet leaflet avoid straining at stool, epsom salts and sitz bath, anusol supps or cream normal left sided colonic mucosa is reassuring, cont with toshia Above findings were reviewed with the patient and relevant handouts were provided if indicated.
[2021-11-01 12:10] VITALS: BP 101/66; PULSE 67; RESP 20; TEMP 36.4; O2SAT 100
[2021-11-01 12:25] VITALS: BP 111/69; PULSE 67; RESP 20; TEMP 36.4; O2SAT 100
== END 2021-11-01 12:59 | disposition home or self-care (01) ==
PROVIDERS: Visit Provider Internal Medicine Gastroenterology
PROC: 0DJD8ZZ Inspection of Lower Intestinal Tract, Via Natural or Artificial Opening Endoscopic (ICD-10-PCS; CPT 45330; principal; 2021-11-01 11:10)
PROC: 0DJ08ZZ Inspection of Upper Intestinal Tract, Via Natural or Artificial Opening Endoscopic (ICD-10-PCS; CPT 43235; 2021-11-01 11:10)
DX: K50.90 Crohn's disease, unspecified, without complications (principal); K64.0 First degree hemorrhoids; R13.10 Dysphagia, unspecified; K29.50 Unspecified chronic gastritis without bleeding; K29.80 Duodenitis without bleeding; K31.7 Polyp of stomach and duodenum; K44.9 Diaphragmatic hernia without obstruction or gangrene; F41.1 Generalized anxiety disorder; Z79.899 Other long term (current) drug therapy; Z88.8 Allergy status to other drugs, medicaments and biological substances; F17.210 Nicotine dependence, cigarettes, uncomplicated
CPT/HCPCS: 45330; 43251; 43249; 43239; 88305; 88342; C1726

== ENCOUNTER 2021-11-09 10:58 | Outpatient (REF) | payer MEDICARE, MEDICAID, SELFPAY ==
[2021-11-09 11:54] LABS: Hematocrit 40.8 % (37.0-47.0); Hemoglobin 13.1 g/dl (12.0-16.0); Mean Corpuscular HGB Conc 32.1 g/dl (31.0-35.0); Mean Corpuscular Hemoglobin 27.8 pg (27.0-33.0); Mean Corpuscular Volume 86.4 fL (80.0-98.0); Mean Platelet Volume 9.8 fL (9.4-12.3); Platelet Count 298 X10*3/uL (160-400); Red Blood Count 4.72 X10*6/uL (4.20-5.50); Red Cell Distribution Width 16.4 % (11.0-16.0); White Blood Count 4.9 X10*3/uL (4.8-10.8)
[2021-11-09 12:03] LABS: Alanine Aminotransferase 7 U/L (0-31); Alkaline Phosphatase 64 U/L (39-117); Anion Gap 10 (12-20); Aspartate Amino Transferase 10 U/L (5-31); Bilirubin Total 0.4 mg/dL (0.0-1.0); Blood Urea Nitrogen 16 mg/dL (9-16); C Reactive Protein 0.36 mg/dL (< or = 0.50); Calcium 9.5 mg/dL (8.4-10.2); Carbon Dioxide 27 mmol/L (22-29); Chloride 108 mmol/L (96-108); Estimated Glomerular Filt Rate > 60; Glucose Random 103 mg/dL (60-115); Potassium 4.2 mmol/L (3.3-5.1); Sodium 141 mmol/L (135-145); Total Protein 6.8 g/dL (6.5-8.0)
[2021-11-09 12:34] LABS: Erythrocyte Sedimentation Rate 12 MM/HR (0-20)
== END 2021-11-09 10:59 | disposition home or self-care (01) ==
LOC: HO.MDS 10:58
PROVIDERS: Visit Provider Internal Medicine Gastroenterology
DX: K50.90 Crohn's disease, unspecified, without complications (principal)
CPT/HCPCS: 36415; 80053; 85027; 85652; 86140; 96365; J3380

== ENCOUNTER 2021-11-13 12:02 | Outpatient (REF) | payer MEDICARE, MEDICAID, SELFPAY | END 2021-11-13 12:03 | disposition home or self-care (01) | LOC: HO.BBR 12:02 | PROVIDERS: Visit Provider Internal Medicine Medical Oncology | DX: D75.1 Secondary polycythemia (principal) | CPT/HCPCS: 85014; 85018; 99195 ==

== ENCOUNTER → 2021-12-18 13:17 | Outpatient (BNVA) | payer MEDICARE, MEDICAID, SELFPAY | PROVIDERS: Visit Provider Internal Medicine Gastroenterology | DX: Z13.89 Encounter for screening for other disorder (principal) | CPT/HCPCS: Q3014 ==

== ENCOUNTER 2022-01-02 10:34 | Outpatient (REF) | payer MEDICARE, MEDICAID, SELFPAY ==
[2022-01-02 12:41] LABS: Hematocrit 43.3 % (37.0-47.0); Mean Corpuscular HGB Conc 32.3 g/dl (31.0-35.0); Mean Corpuscular Hemoglobin 28.4 pg (27.0-33.0); Mean Corpuscular Volume 87.8 fL (80.0-98.0); Mean Platelet Volume 9.3 fL (9.4-12.3); Platelet Count 236 X10*3/uL (160-400); Red Blood Count 4.93 X10*6/uL (4.20-5.50); Red Cell Distribution Width 18.5 % (11.0-16.0); White Blood Count 5.8 X10*3/uL (4.8-10.8)
[2022-01-02 13:02] LABS: Alanine Aminotransferase 9 U/L (0-31); Albumin Level 3.8 g/dL (3.5-5.0); Alkaline Phosphatase 70 U/L (39-117); Anion Gap 9 (12-20); Aspartate Amino Transferase 11 U/L (5-31); Bilirubin Total 0.6 mg/dL (0.0-1.0); Blood Urea Nitrogen 11 mg/dL (9-16); C Reactive Protein 0.43 mg/dL (< or = 0.50); Carbon Dioxide 27 mmol/L (22-29); Chloride 108 mmol/L (96-108); Estimated Glomerular Filt Rate > 60; Glucose Random 121 mg/dL (60-115); Potassium 4.1 mmol/L (3.3-5.1); Sodium 140 mmol/L (135-145); Total Protein 6.5 g/dL (6.5-8.0)
[2022-01-02 13:19] LABS: Erythrocyte Sedimentation Rate 8 MM/HR (0-20)
== END 2022-01-02 10:35 | disposition home or self-care (01) ==
LOC: HO.MDS 10:34
PROVIDERS: Visit Provider Internal Medicine Gastroenterology
DX: K50.90 Crohn's disease, unspecified, without complications (principal)
CPT/HCPCS: 36415; 80053; 85027; 85652; 86140; 96365; J3380

== ENCOUNTER → 2022-01-03 08:31 | Outpatient (BNVA) | payer MEDICARE, MEDICAID, SELFPAY | PROVIDERS: Visit Provider Internal Medicine Gastroenterology | DX: K29.80 Duodenitis without bleeding (principal); K50.90 Crohn's disease, unspecified, without complications | CPT/HCPCS: 91110; 99211 ==

== ENCOUNTER 2022-01-12 11:43 | Outpatient (REF) | payer MEDICARE, MEDICAID, SELFPAY | END 2022-01-12 11:44 | disposition home or self-care (01) | LOC: HO.BBR 11:43 | PROVIDERS: Visit Provider Internal Medicine Medical Oncology | DX: D75.1 Secondary polycythemia (principal) | CPT/HCPCS: 85014; 85018; 99195 ==

== ENCOUNTER 2022-03-15 11:44 | Outpatient (REF) | payer MEDICARE, MEDICAID, SELFPAY | END 2022-03-15 11:45 | disposition home or self-care (01) | LOC: HO.BBR 11:44 | PROVIDERS: Visit Provider Internal Medicine Medical Oncology | DX: D75.1 Secondary polycythemia (principal) | CPT/HCPCS: 85018; 99195 ==

== ENCOUNTER 2022-03-20 11:30 | Outpatient (REF) | payer MEDICARE, MEDICAID, SELFPAY ==
[2022-03-20 12:44] LABS: Hematocrit 38.6 % (37.0-47.0); Hemoglobin 12.9 g/dl (12.0-16.0); Mean Corpuscular HGB Conc 33.4 g/dl (31.0-35.0); Mean Corpuscular Hemoglobin 30.4 pg (27.0-33.0); Mean Platelet Volume 9.5 fL (9.4-12.3); Platelet Count 274 X10*3/uL (160-400); Red Blood Count 4.24 X10*6/uL (4.20-5.50); Red Cell Distribution Width 16.3 % (11.0-16.0); White Blood Count 6.6 X10*3/uL (4.8-10.8)
[2022-03-20 13:08] LABS: Alanine Aminotransferase 14 U/L (0-31); Alkaline Phosphatase 72 U/L (39-117); Anion Gap 9 (12-20); Aspartate Amino Transferase 15 U/L (5-31); Bilirubin Total 0.4 mg/dL (0.0-1.0); Blood Urea Nitrogen 13 mg/dL (9-16); C Reactive Protein 0.39 mg/dL (< or = 0.50); Calcium 9.3 mg/dL (8.4-10.2); Carbon Dioxide 28 mmol/L (22-29); Chloride 109 mmol/L (96-108); Estimated Glomerular Filt Rate > 60; Glucose Random 83 mg/dL (60-115); Potassium 5.1 mmol/L (3.3-5.1); Sodium 141 mmol/L (135-145); Total Protein 6.7 g/dL (6.5-8.0)
[2022-03-20 13:26] LABS: Erythrocyte Sedimentation Rate 17 MM/HR (0-20)
[2022-03-22 22:28] LABS: TS Negative Control Passed; TS Panel A 0; TS Panel B 0; TS Positive Control Passed; TSpotTB Negative (Negative)
== END 2022-03-20 11:31 | disposition home or self-care (01) ==
LOC: HO.MDS 11:30
PROVIDERS: Visit Provider Internal Medicine Gastroenterology
DX: K50.90 Crohn's disease, unspecified, without complications (principal)
CPT/HCPCS: 36415; 80053; 85027; 85652; 86140; 86481; 96365; 96375; J3380

== ENCOUNTER 2022-04-04 10:07 | Outpatient (REF) | payer MEDICARE, MEDICAID, SELFPAY ==
[2022-04-04 10:28] LABS: MANUAL DIFF FLAG NO
[2022-04-04 10:44] LABS: Basophils Percent Auto 0.5 % (0-2); Eosinophils Absolute Auto 0.1 X10*3/uL (0.0-0.4); Eosinophils Percent Auto 2.6 % (0-4); Hematocrit 38.4 % (37.0-47.0); Hemoglobin 12.7 g/dl (12.0-16.0); Imm Gran Abs Auto 0.01 X10*3/uL (0.00-0.03); Imm Gran Pct Auto 0.2 % (0.0-0.4); Lymphocytes Absolute Auto 1.4 X10*3/uL (1.2-4.9); Lymphocytes Percent Auto 33.3 % (20-40); Mean Corpuscular HGB Conc 33.1 g/dl (31.0-35.0); Mean Corpuscular Volume 90.8 fL (80.0-98.0); Mean Platelet Volume 9.3 fL (9.4-12.3); Monocytes Absolute Auto 0.3 X10*3/uL (0.1-1.2); Monocytes Percent Auto 5.9 % (2-11); Neutrophils Absolute Auto 2.5 x10*3/uL (2.0-8.3); Neutrophils Percent Auto 57.5 % (45-73); Platelet Count 245 X10*3/uL (160-400); Red Blood Count 4.23 X10*6/uL (4.20-5.50); Red Cell Distribution Width 16.1 % (11.0-16.0); White Blood Count 4.3 X10*3/uL (4.8-10.8)
[2022-04-04 14:56] LABS: CDiff Gene PCR NEGATIVE (Negative)
[2022-04-06 14:41] LABS: CRP High Sensitivity 4.3 mg/L
== END 2022-04-04 10:08 | disposition home or self-care (01) ==
LOC: HO.LAB 10:07
PROVIDERS: PCP Internal Medicine; Visit Provider Internal Medicine Gastroenterology
DX: K50.919 Crohn's disease, unspecified, with unspecified complications (principal)
CPT/HCPCS: 36415; 85025; 86141; 87493

== ENCOUNTER 2022-04-20 09:24 | Outpatient (REF) | payer MEDICARE, MEDICAID, SELFPAY ==
[2022-04-20 11:13] LABS: Appearance Urine CLEAR; Color Urine YELLOW; Glucose Urine UA NEG (NEG); Leukocyte Esterase Urine NEG (NEG); Nitrite Urine NEG (NEG); Specific Gravity - Urine 1.025 (1.005-1.025); UACC Culture Trigger NO; Urine Blood 2+ (NEG); Urine Ketones NEG (NEG); Urine Protein NEG (NEG-TRACE)
[2022-04-20 11:25] LABS: Erythrocyte Sedimentation Rate 18 MM/HR (0-20)
[2022-04-20 12:02] LABS: Squamous Epithelial Cell Urine 1+ /LPF; WBC Urine 0 /HPF (0-4)
== END 2022-04-20 09:25 | disposition home or self-care (01) ==
LOC: HO.LAB 09:24
PROVIDERS: PCP Internal Medicine; Visit Provider Internal Medicine Gastroenterology
DX: K50.919 Crohn's disease, unspecified, with unspecified complications (principal); R30.0 Dysuria
CPT/HCPCS: 36415; 81001; 85652; 86140; 99212

== ENCOUNTER 2022-05-01 | Outpatient (REF) | payer MEDICARE, MEDICAID, SELFPAY | END 2022-05-01 00:01 | disposition home or self-care (01) | LOC: HO.LNP | PROVIDERS: Visit Provider Internal Medicine Gastroenterology | DX: K50.90 Crohn's disease, unspecified, without complications (principal) | CPT/HCPCS: 36415 ==

== ENCOUNTER 2022-05-15 11:46 | Outpatient (REF) | payer MEDICARE, MEDICAID, SELFPAY | END 2022-05-15 11:47 | disposition home or self-care (01) | LOC: HO.BBR 11:46 | PROVIDERS: Visit Provider Internal Medicine Medical Oncology | DX: D75.1 Secondary polycythemia (principal) | CPT/HCPCS: 85014; 85018; 99195 ==

== ENCOUNTER 2022-05-17 11:45 | Outpatient (REF) | payer MEDICARE, MEDICAID, SELFPAY ==
[2022-05-17 12:57] LABS: MANUAL DIFF FLAG NO
[2022-05-17 13:02] LABS: Basophils Percent Auto 0.6 % (0-2); Eosinophils Absolute Auto 0.1 X10*3/uL (0.0-0.4); Eosinophils Percent Auto 2.5 % (0-4); Hematocrit 36.8 % (37.0-47.0); Hemoglobin 12.1 g/dl (12.0-16.0); Imm Gran Abs Auto 0.01 X10*3/uL (0.00-0.03); Imm Gran Pct Auto 0.2 % (0.0-0.4); Lymphocytes Absolute Auto 1.4 X10*3/uL (1.2-4.9); Lymphocytes Percent Auto 28.8 % (20-40); Mean Corpuscular HGB Conc 32.9 g/dl (31.0-35.0); Mean Corpuscular Volume 91.1 fL (80.0-98.0); Mean Platelet Volume 9.4 fL (9.4-12.3); Monocytes Absolute Auto 0.4 X10*3/uL (0.1-1.2); Monocytes Percent Auto 7.4 % (2-11); Neutrophils Absolute Auto 2.9 x10*3/uL (2.0-8.3); Neutrophils Percent Auto 60.5 % (45-73); Platelet Count 247 X10*3/uL (160-400); Red Blood Count 4.04 X10*6/uL (4.20-5.50); Red Cell Distribution Width 15.4 % (11.0-16.0); White Blood Count 4.7 X10*3/uL (4.8-10.8)
[2022-05-17 13:17] LABS: Alanine Aminotransferase 10 U/L (0-31); Albumin Level 3.8 g/dL (3.5-5.0); Alkaline Phosphatase 66 U/L (39-117); Anion Gap 13 (12-20); Aspartate Amino Transferase 13 U/L (5-31); Bilirubin Total < 0.2 mg/dL (0.0-1.0); Blood Urea Nitrogen 15 mg/dL (9-16); C Reactive Protein 0.31 mg/dL (< or = 0.50); Carbon Dioxide 29 mmol/L (22-29); Chloride 107 mmol/L (96-108); Estimated Glomerular Filt Rate > 60; Glucose Random 91 mg/dL (60-115); Potassium 4.9 mmol/L (3.3-5.1); Sodium 144 mmol/L (135-145); Total Protein 6.8 g/dL (6.5-8.0)
[2022-05-17 13:50] LABS: Erythrocyte Sedimentation Rate 27 MM/HR (0-20)
== END 2022-05-17 11:46 | disposition home or self-care (01) ==
LOC: HO.MDS 11:45
PROVIDERS: Visit Provider Internal Medicine Gastroenterology
DX: K50.90 Crohn's disease, unspecified, without complications (principal)
CPT/HCPCS: 36415; 80053; 85025; 85652; 86140; 87493; 96365; J1200; J3380

== ENCOUNTER 2022-06-01 08:25 | Outpatient (REF) | payer MEDICARE, MEDICAID, SELFPAY ==
--- NOTE | ~2022-06-01 | US_ITS ---
EXAMINATION: US ABDOMEN COMPLETE CLINICAL INFORMATION: Crohn's disease, unspecified. Left flank pain, cramps. COMPARISON: Ultrasound abdomen complete dated 04/28/2020. CT abdomen and pelvis without and with contrast dated 02/24/2019. TECHNIQUE: Real-time imaging of the abdominal viscera. FINDINGS: PANCREAS: Head and body appear unremarkable without abnormal mass or peripancreatic inflammatory change. Pancreatic duct is not dilated. The tail is obscured by overlying bowel gas. ABDOMINAL AORTA: The proximal, mid, and distal segments are normal in caliber. INFERIOR VENA CAVA: Visualized portions are normal. LIVER: Within the right lobe of liver there is a 1.7 x 1.4 x 1.6 cm homogeneously hyperechoic structure with the appearance of a hemangioma. This was present on previous CT examination of 02/24/2019. The liver is normal in size. The liver contour is normal. Parenchymal echogenicity is normal. There is no intrahepatic biliary duct dilatation seen. GALLBLADDER: Normal. The gallbladder is physiologically distended without evidence of stones, sludge, polyps, wall thickening or pericholecystic fluid. COMMON BILE DUCT: Normal in caliber measuring 0.65 cm in diameter. RIGHT KIDNEY: Normal. No hydronephrosis. No renal calculi or focal parenchymal lesions. The kidney measures 12.0 cm in maximum dimension. LEFT KIDNEY: Within the lower pole there is a 4 mm nonobstructing calculus. There is a 1.9 x 1.0 x 1.3 cm parapelvic cyst. Within the upper pole there is a 2.0 x 2.0 x 1.9 cm cyst with question septation and small calcification with the appearance of a Bosniak 2 cyst. A 1.8 cm upper pole cyst was noted on previous CT scan of 05/30/2021. No hydronephrosis. The kidney measures 11.3 cm in maximum dimension. SPLEEN: There is a stable 3.2 x 3.1 x 3.6 cm splenic cyst with some septations. This was noted on CT scan of 05/30/2021 The spleen measures 9.8 cm in maximum dimension. FREE FLUID: None. US/US abdomen complete IMPRESSION: No evidence of obstructive uropathy. Stable hepatic hemangioma. Left renal cysts and 4 mm nonobstructing calculus. Stable splenic complex cyst.
== END 2022-06-01 08:26 | disposition home or self-care (01) ==
LOC: HO.US 08:25
PROVIDERS: Visit Provider Internal Medicine Gastroenterology
DX: K50.919 Crohn's disease, unspecified, with unspecified complications (principal)
CPT/HCPCS: 76700

== ENCOUNTER 2022-07-02 11:36 | Outpatient (REF) | payer MEDICARE, MEDICAID, SELFPAY ==
[2022-07-02 12:30] LABS: Hematocrit 39.2 % (37.0-47.0); Mean Corpuscular HGB Conc 33.2 g/dl (31.0-35.0); Mean Corpuscular Hemoglobin 29.9 pg (27.0-33.0); Mean Corpuscular Volume 90.1 fL (80.0-98.0); Mean Platelet Volume 9.2 fL (9.4-12.3); Platelet Count 251 X10*3/uL (160-400); Red Blood Count 4.35 X10*6/uL (4.20-5.50); Red Cell Distribution Width 13.9 % (11.0-16.0); White Blood Count 4.9 X10*3/uL (4.8-10.8)
[2022-07-02 12:46] LABS: Alanine Aminotransferase 10 U/L (0-31); Albumin Level 4.1 g/dL (3.5-5.0); Alkaline Phosphatase 78 U/L (39-117); Anion Gap 14 (12-20); Aspartate Amino Transferase 13 U/L (5-31); Bilirubin Total 0.2 mg/dL (0.0-1.0); Blood Urea Nitrogen 14 mg/dL (9-16); C Reactive Protein 0.46 mg/dL (< or = 0.50); Calcium 8.9 mg/dL (8.4-10.2); Carbon Dioxide 25 mmol/L (22-29); Chloride 107 mmol/L (96-108); Estimated Glomerular Filt Rate > 60; Glucose Random 84 mg/dL (60-115); Potassium 4.3 mmol/L (3.3-5.1); Sodium 142 mmol/L (135-145); Total Protein 7.2 g/dL (6.5-8.0)
[2022-07-02 13:09] LABS: Erythrocyte Sedimentation Rate 26 MM/HR (0-20)
== END 2022-07-02 11:37 | disposition home or self-care (01) ==
LOC: HO.MDS 11:36
PROVIDERS: Visit Provider Internal Medicine Gastroenterology
DX: K50.90 Crohn's disease, unspecified, without complications (principal)
CPT/HCPCS: 36415; 80053; 85027; 85652; 86140; 96365; 96375; J1200; J3380

== ENCOUNTER 2022-07-17 13:53 | Outpatient (REF) | payer MEDICARE, MEDICAID, SELFPAY | END 2022-07-17 13:54 | disposition home or self-care (01) | LOC: HO.BBR 13:53 | PROVIDERS: Visit Provider Internal Medicine Medical Oncology | DX: D75.1 Secondary polycythemia (principal) | CPT/HCPCS: 85018; 99195 ==

== ENCOUNTER 2022-08-13 10:54 | Outpatient (REF) | payer MEDICARE, MEDICAID, SELFPAY ==
[2022-08-13 11:12] LABS: Hematocrit 37.2 % (37.0-47.0); Hemoglobin 12.3 g/dl (12.0-16.0); Mean Corpuscular HGB Conc 33.1 g/dl (31.0-35.0); Mean Corpuscular Hemoglobin 29.7 pg (27.0-33.0); Mean Corpuscular Volume 89.9 fL (80.0-98.0); Mean Platelet Volume 9.1 fL (9.4-12.3); Platelet Count 255 X10*3/uL (160-400); Red Blood Count 4.14 X10*6/uL (4.20-5.50); White Blood Count 4.4 X10*3/uL (4.8-10.8)
[2022-08-13 11:27] LABS: Alanine Aminotransferase 8 U/L (0-31); Albumin Level 3.9 g/dL (3.5-5.0); Alkaline Phosphatase 71 U/L (39-117); Anion Gap 13 (12-20); Aspartate Amino Transferase 12 U/L (5-31); Bilirubin Total 0.2 mg/dL (0.0-1.0); Blood Urea Nitrogen 22 mg/dL (9-16); C Reactive Protein 0.34 mg/dL (< or = 0.50); Calcium 8.9 mg/dL (8.4-10.2); Carbon Dioxide 26 mmol/L (22-29); Chloride 107 mmol/L (96-108); Estimated Glomerular Filt Rate > 60; Glucose Random 91 mg/dL (60-115); Potassium 4.7 mmol/L (3.3-5.1); Sodium 141 mmol/L (135-145); Total Protein 6.8 g/dL (6.5-8.0)
[2022-08-13 11:54] LABS: Erythrocyte Sedimentation Rate 29 MM/HR (0-20)
== END 2022-08-13 10:55 | disposition home or self-care (01) ==
LOC: HO.MDS 10:54
PROVIDERS: Visit Provider Internal Medicine Gastroenterology
DX: K50.90 Crohn's disease, unspecified, without complications (principal)
CPT/HCPCS: 36415; 80053; 85027; 85652; 86140; 96365; J1200; J3380

== ENCOUNTER 2022-09-13 13:56 | Outpatient (REF) | payer MEDICARE, MEDICAID, SELFPAY | END 2022-09-13 13:57 | disposition home or self-care (01) | LOC: HO.BBR 13:56 | PROVIDERS: Visit Provider Internal Medicine Medical Oncology | DX: D75.1 Secondary polycythemia (principal) | CPT/HCPCS: 85014; 85018; 99195 ==

== ENCOUNTER 2022-09-25 09:21 | Outpatient (REF) | payer MEDICARE, MEDICAID, SELFPAY ==
[2022-09-25 10:37] LABS: Hematocrit 37.5 % (37.0-47.0); Hemoglobin 12.1 g/dl (12.0-16.0); Mean Corpuscular HGB Conc 32.3 g/dl (31.0-35.0); Mean Corpuscular Hemoglobin 28.6 pg (27.0-33.0); Mean Corpuscular Volume 88.7 fL (80.0-98.0); Platelet Count 290 X10*3/uL (160-400); Red Blood Count 4.23 X10*6/uL (4.20-5.50); Red Cell Distribution Width 14.5 % (11.0-16.0); White Blood Count 5.4 X10*3/uL (4.8-10.8)
[2022-09-25 11:12] LABS: Erythrocyte Sedimentation Rate 33 MM/HR (0-20)
[2022-09-25 11:25] LABS: Alanine Aminotransferase 11 U/L (0-31); Alkaline Phosphatase 74 U/L (39-117); Anion Gap 9 (12-20); Aspartate Amino Transferase 12 U/L (5-31); Bilirubin Total 0.2 mg/dL (0.0-1.0); Blood Urea Nitrogen 20 mg/dL (9-16); Calcium 9.4 mg/dL (8.4-10.2); Carbon Dioxide 30 mmol/L (22-29); Chloride 107 mmol/L (96-108); Estimated Glomerular Filt Rate > 60; Glucose Random 96 mg/dL (60-115); Potassium 5.1 mmol/L (3.3-5.1); Sodium 141 mmol/L (135-145); Total Protein 6.8 g/dL (6.5-8.0)
== END 2022-09-25 09:22 | disposition home or self-care (01) ==
LOC: HO.MDS 09:21
PROVIDERS: Visit Provider Internal Medicine Gastroenterology
DX: K50.90 Crohn's disease, unspecified, without complications (principal)
CPT/HCPCS: 36415; 80053; 85027; 85652; 86140; 96365; J1200; J3380

== ENCOUNTER 2022-11-09 11:06 | Outpatient (REF) | payer MEDICARE, MEDICAID, SELFPAY ==
[2022-11-09 11:59] LABS: MANUAL DIFF FLAG NO
[2022-11-09 12:02] LABS: Basophils Absolute Auto 0.1 X10*3/uL (0.0-0.2); Basophils Percent Auto 0.5 % (0-2); Eosinophils Absolute Auto 0.2 X10*3/uL (0.0-0.4); Eosinophils Percent Auto 2.1 % (0-4); Hematocrit 37.9 % (37.0-47.0); Imm Gran Abs Auto 0.04 X10*3/uL (0.00-0.03); Imm Gran Pct Auto 0.4 % (0.0-0.4); Lymphocytes Absolute Auto 1.7 X10*3/uL (1.2-4.9); Lymphocytes Percent Auto 18.7 % (20-40); Mean Corpuscular HGB Conc 31.7 g/dl (31.0-35.0); Mean Corpuscular Hemoglobin 27.3 pg (27.0-33.0); Mean Corpuscular Volume 86.1 fL (80.0-98.0); Mean Platelet Volume 8.8 fL (9.4-12.3); Monocytes Absolute Auto 0.5 X10*3/uL (0.1-1.2); Monocytes Percent Auto 5.9 % (2-11); Neutrophils Absolute Auto 6.7 x10*3/uL (2.0-8.3); Neutrophils Percent Auto 72.4 % (45-73); Platelet Count 289 X10*3/uL (160-400); White Blood Count 9.2 X10*3/uL (4.8-10.8)
[2022-11-09 12:34] LABS: Alanine Aminotransferase 14 U/L (0-31); Alkaline Phosphatase 76 U/L (39-117); Anion Gap 12 (12-20); Aspartate Amino Transferase 17 U/L (5-31); Bilirubin Total 0.5 mg/dL (0.0-1.0); Blood Urea Nitrogen 14 mg/dL (9-16); C Reactive Protein 0.17 mg/dL (< or = 0.50); Calcium 8.9 mg/dL (8.4-10.2); Carbon Dioxide 26 mmol/L (22-29); Chloride 108 mmol/L (96-108); Estimated Glomerular Filt Rate > 60; Glucose Random 93 mg/dL (60-115); Potassium 4.6 mmol/L (3.3-5.1); Sodium 141 mmol/L (135-145)
[2022-11-09 12:51] LABS: Erythrocyte Sedimentation Rate 25 MM/HR (0-20)
== END 2022-11-09 11:07 | disposition home or self-care (01) ==
LOC: HO.MDS 11:06
PROVIDERS: Visit Provider Internal Medicine Gastroenterology
DX: K50.90 Crohn's disease, unspecified, without complications (principal)
CPT/HCPCS: 36415; 80053; 85025; 85652; 86140; 96365; J1200; J3380

== ENCOUNTER 2022-12-21 10:25 | Outpatient (REF) | payer MEDICARE, MEDICAID, SELFPAY ==
[2022-12-21 11:46] LABS: Hematocrit 39.4 % (37.0-47.0); Hemoglobin 12.5 g/dl (12.0-16.0); Mean Corpuscular HGB Conc 31.7 g/dl (31.0-35.0); Mean Corpuscular Hemoglobin 27.3 pg (27.0-33.0); Mean Platelet Volume 9.3 fL (9.4-12.3); Platelet Count 261 X10*3/uL (160-400); Red Blood Count 4.58 X10*6/uL (4.20-5.50); Red Cell Distribution Width 17.1 % (11.0-16.0); White Blood Count 5.2 X10*3/uL (4.8-10.8)
[2022-12-21 12:04] LABS: Alanine Aminotransferase 14 U/L (0-31); Albumin Level 3.9 g/dL (3.5-5.0); Alkaline Phosphatase 83 U/L (39-117); Anion Gap 12 (12-20); Aspartate Amino Transferase 15 U/L (5-31); Bilirubin Total 0.3 mg/dL (0.0-1.0); Blood Urea Nitrogen 15 mg/dL (9-16); C Reactive Protein 0.29 mg/dL (< or = 0.50); Calcium 9.3 mg/dL (8.4-10.2); Carbon Dioxide 27 mmol/L (22-29); Chloride 108 mmol/L (96-108); Estimated Glomerular Filt Rate > 60; Glucose Random 90 mg/dL (60-115); Potassium 4.3 mmol/L (3.3-5.1); Sodium 143 mmol/L (135-145); Total Protein 6.7 g/dL (6.5-8.0)
[2022-12-21 12:28] LABS: Erythrocyte Sedimentation Rate 20 MM/HR (0-20)
== END 2022-12-21 10:26 | disposition home or self-care (01) ==
LOC: HO.MDS 10:25
PROVIDERS: Visit Provider Internal Medicine Gastroenterology
DX: K50.90 Crohn's disease, unspecified, without complications (principal)
CPT/HCPCS: 36415; 80053; 85027; 85652; 86140; 96365; 96375; J1200; J3380

== ENCOUNTER 2023-01-04 08:27 | Outpatient (REF) | payer MEDICARE, MEDICAID, SELFPAY ==
--- NOTE | ~2023-01-04 | CT_ITS ---
EXAMINATION: CT ABDOMEN AND PELVIS WITH CONTRAST CLINICAL INFORMATION: Night sweats with inflammatory bowel disease. Question lymphoma COMPARISON: Ultrasound abdomen 06/01/2022 TECHNIQUE: Multidetector volumetric images were obtained from the superior aspect of the liver through the pubic symphysis following administration 85 mL of Omnipaque 350 intravenous contrast. Sagittal and coronal reformatted images were obtained on the technologist's workstation. Oral contrast: No This CT examination was performed using dose optimization techniques as appropriate, variously including the following: *Automated exposure control *Adjustment of mA and/or kV according to patient size (this includes techniques or standardized protocols for targeted exams where dose is matched to indication/reason for exam; i.e. extremities or head) *Use of iterative reconstruction technique DLP: 1164 mGy-cm FINDINGS: LUNG BASES: The visualized lung bases are unremarkable. There is a small hiatal hernia. LIVER, GALLBLADDER, AND BILIARY TREE: The liver is normal in size, shape, and attenuation. There are small hypodense lesions in the right hepatic lobe, too small to correctly characterize. No solid enhancing lesion or intrahepatic ductal dilatation. The gallbladder is contracted without any radiopaque calculi or wall thickening. PANCREAS: Unremarkable. SPLEEN: There are 2 hypodense lesions, the larger in the superior pole measures 3.5 x 3.1 cm and 17 Hounsfield units, likely a complex cyst. It was noted to be a cyst on the previous ultrasound abdomen exam 06/01/2022. An accessory splenule is seen along the enteric tip of the spleen. There is a smaller lesion adjacent to the superior pole cysts and a smaller lesion in the inferior pole measuring 9 mm. This is also likely a cyst. ADRENAL GLANDS: There is a left adrenal lesion measuring 20.6 x 2.0 x 2.9 cm and 76 Hounsfield units. On the previous CT abdomen exam, it measured 1.7 x 2.[address] 02/24/2019 it was reported as a lipid rich adenoma. The right adrenal gland is unremarkable. KIDNEYS AND URETERS: The kidneys are normal in size, shape, and attenuation. No hydronephrosis, hydroureter, or calculi seen. No perinephric stranding. There is a 2.4 cm cyst in the upper pole of the left kidney. Tiny hypodensities are seen in the corticomedullary junctions of both kidneys likely smaller cysts but too small to correctly characterize. BLADDER: Unremarkable. GASTROINTESTINAL TRACT: There is moderate scattered stool, diverticuli and contrast seen throughout the colon without distention. There is no evidence of diverticulitis. The small bowel loops are normal caliber. The stomach is nondistended with mild medial and posterior gastric wall thickening likely from underdistention. ABDOMINAL WALL: No significant hernia is appreciated. LYMPH NODES: Normal. VASCULAR: Unremarkable. PELVIC VISCERA: There is no free fluid or free air seen. OSSEOUS STRUCTURES: No aggressive lytic or sclerotic process seen. CT/CT abdomen pelvis w IV con IMPRESSION: 1. Left adrenal lipid rich adenoma slightly increased in size since the previous CT abdomen exam 06/01/2022. The right adrenal gland is unremarkable. 2. Moderate constipation with colonic diverticulosis. No evidence of diverticulitis. 3. Small hiatal hernia. 4. Bilateral renal cysts. 5. Previously seen bilateral renal stones and adenomyoma or polyp in the fundus of gallbladder is not visualized. 6. Small hypodense lesions in the right hepatic lobe are stable. They were reported as a cyst or hemangioma and are unchanged. There are splenic cysts which are stable. Fleischner guidelines were followed.
--- NOTE | ~2023-01-04 | CT_ITS ---
EXAMINATION: CT HEAD WITH CONTRAST CLINICAL INFORMATION: Tunnel vision COMPARISON: None available. TECHNIQUE: Contiguous axial imaging was performed from the skull base to vertex following the administration of 85 mL of Omnipaque [address] examination was performed using dose optimization techniques as appropriate, variously including the following: *Automated exposure control *Adjustment of mA and/or kV according to patient size (this includes techniques or standardized protocols for targeted exams where dose is matched to indication/reason for exam; i.e. extremities or head) *Use of iterative reconstruction technique DLP: 733 mGy-cm FINDINGS: There is no evidence for an extra-axial collection. There is no evidence for intra-axial or extra-axial hemorrhage. There is focal dilatation of the posterior horn of the right lateral ventricle versus cyst measuring 1.8 cm. The ventricles and extra-axial CSF spaces are otherwise appropriate. Benjamin-white matter differentiation is normal. No mass, mass effect or infarct. No abnormal enhancement. Review at bone windows is normal. Paranasal sinuses, mastoid air cells and middle ears are clear. The orbits are normal appearing. CT/CT head/brain w IV con IMPRESSION: Focal dilatation of the posterior horn of the right lateral ventricle versus periventricular cyst that measures 1.8 cm. This could be further evaluated with MRI. Otherwise unremarkable exam.
[2023-01-04] MEDS: Barium Sulfate Oral (Mocha) 450 ML ORAL.SUSP 900 ML PO (11:35)
[2023-01-04] MEDS: iohexoL 350 MG/ML 100 ML INFUS..BTL IV (11:35)
== END 2023-01-04 08:28 | disposition home or self-care (01) ==
LOC: HO.CT 08:27
PROVIDERS: Visit Provider Internal Medicine Medical Oncology
DX: R61 Generalized hyperhidrosis (principal); H53.489 Generalized contraction of visual field, unspecified eye
CPT/HCPCS: 70460; 74177; Q9967

== ENCOUNTER 2023-01-29 14:08 | Outpatient (REF) | payer MEDICARE, MEDICAID, SELFPAY | END 2023-01-29 14:09 | disposition home or self-care (01) | LOC: HO.BBR 14:08 | PROVIDERS: PCP Internal Medicine; Visit Provider Internal Medicine Medical Oncology | DX: D75.1 Secondary polycythemia (principal) | CPT/HCPCS: 85014; 85018; 99195 ==

== ENCOUNTER 2023-02-01 09:51 | Outpatient (REF) | payer MEDICARE, MEDICAID, SELFPAY ==
[2023-02-01 10:30] LABS: Hematocrit 37.7 % (37.0-47.0); Hemoglobin 12.4 g/dl (12.0-16.0); Mean Corpuscular HGB Conc 32.9 g/dl (31.0-35.0); Mean Corpuscular Volume 88.1 fL (80.0-98.0); Mean Platelet Volume 9.1 fL (9.4-12.3); Platelet Count 239 X10*3/uL (160-400); Red Blood Count 4.28 X10*6/uL (4.20-5.50); Red Cell Distribution Width 17.8 % (11.0-16.0); White Blood Count 4.1 X10*3/uL (4.8-10.8)
[2023-02-01 10:55] LABS: Alanine Aminotransferase 10 U/L (0-31); Albumin Level 3.7 g/dL (3.5-5.0); Alkaline Phosphatase 79 U/L (39-117); Anion Gap 11 (12-20); Aspartate Amino Transferase 13 U/L (5-31); Bilirubin Total 0.4 mg/dL (0.0-1.0); Blood Urea Nitrogen 15 mg/dL (9-16); Carbon Dioxide 26 mmol/L (22-29); Chloride 110 mmol/L (96-108); Estimated Glomerular Filt Rate > 60; Glucose Random 95 mg/dL (60-115); Potassium 5.2 mmol/L (3.3-5.1); Sodium 142 mmol/L (135-145); Total Protein 6.4 g/dL (6.5-8.0)
[2023-02-01 11:16] LABS: Erythrocyte Sedimentation Rate 23 MM/HR (0-20)
[2023-02-02 18:44] LABS: CRP High Sensitivity 4.9 mg/L
[2023-02-03 22:29] LABS: TS Negative Control Passed; TS Panel A 0; TS Panel B 0; TS Positive Control Passed; TSpotTB Negative (Negative)
== END 2023-02-01 09:52 | disposition home or self-care (01) ==
LOC: HO.MDS 09:51
PROVIDERS: Visit Provider Internal Medicine Gastroenterology
DX: K50.90 Crohn's disease, unspecified, without complications (principal)
CPT/HCPCS: 36415; 80053; 85027; 85652; 86141; 86481; 96365; 96375; J1200; J3380

== ENCOUNTER 2023-02-18 10:13 | Outpatient (REF) | payer MEDICARE, MEDICAID, SELFPAY ==
--- NOTE | ~2023-02-18 | MR_ITS ---
EXAMINATION: MR BRAIN WITHOUT AND WITH CONTRAST CLINICAL INFORMATION: Cyst in the right lateral ventricle on CT scan of head. COMPARISON: Head CT 01/04/2023. TECHNIQUE: Multiplanar, multisequence imaging of the brain was performed before and after the intravenous administration of 8 mL of Gadavist. FINDINGS: There is no acute infarction, hemorrhage, mass, or extra-axial fluid collection. A thin-walled CSF signal intensity cyst is seen adjacent to the right lateral ventricular atrium. Is difficult to determine if this cyst is contiguous with the ventricle or just external. The internal contents demonstrate complete suppression on the FLAIR sequence. There is no abnormal enhancement. There is no hydrocephalus. A few nonspecific foci of T2/FLAIR hyperintensity are seen within the cerebral white matter. The major arterial flow voids appear preserved at the skull base. There is a left lens replacement. The extracranial structures are within normal limits. MR/MR head/brain wo/w con IMPRESSION: No acute intracranial abnormality identified. Thin-walled CSF signal intensity cyst seen adjacent to the right lateral ventricular atrium this appears to be a benign finding and may represent an arachnoid cyst within the ventricle or a prominent perivascular space immediately adjacent to the ventricle. No suspicious findings are seen.
== END 2023-02-18 10:14 | disposition home or self-care (01) ==
LOC: HO.MRI 10:13
PROVIDERS: PCP Internal Medicine; Visit Provider Internal Medicine Medical Oncology
DX: G93.0 Cerebral cysts (principal)
CPT/HCPCS: 70553; A9585

== ENCOUNTER 2023-03-15 10:28 | Outpatient (REF) | payer MEDICARE, MEDICAID, SELFPAY ==
[2023-03-15 10:29] LABS: MANUAL DIFF FLAG NO
[2023-03-15 10:34] LABS: Basophils Percent Auto 0.7 % (0-2); Eosinophils Absolute Auto 0.2 X10*3/uL (0.0-0.4); Eosinophils Percent Auto 4.7 % (0-4); Hematocrit 40.8 % (37.0-47.0); Hemoglobin 13.4 g/dl (12.0-16.0); Imm Gran Abs Auto 0.01 X10*3/uL (0.00-0.03); Imm Gran Pct Auto 0.2 % (0.0-0.4); Lymphocytes Absolute Auto 1.1 X10*3/uL (1.2-4.9); Lymphocytes Percent Auto 26.9 % (20-40); Mean Corpuscular HGB Conc 32.8 g/dl (31.0-35.0); Mean Corpuscular Hemoglobin 29.6 pg (27.0-33.0); Mean Corpuscular Volume 90.1 fL (80.0-98.0); Mean Platelet Volume 9.4 fL (9.4-12.3); Monocytes Absolute Auto 0.2 X10*3/uL (0.1-1.2); Monocytes Percent Auto 5.7 % (2-11); Neutrophils Absolute Auto 2.6 x10*3/uL (2.0-8.3); Neutrophils Percent Auto 61.8 % (45-73); Platelet Count 247 X10*3/uL (160-400); Red Blood Count 4.53 X10*6/uL (4.20-5.50); White Blood Count 4.2 X10*3/uL (4.8-10.8)
[2023-03-15 11:00] LABS: Alanine Aminotransferase 8 U/L (0-31); Albumin Level 3.6 g/dL (3.5-5.0); Alkaline Phosphatase 84 U/L (39-117); Anion Gap 14 (12-20); Aspartate Amino Transferase 13 U/L (5-31); Bilirubin Total 0.2 mg/dL (0.0-1.0); Blood Urea Nitrogen 14 mg/dL (9-16); Calcium 9.7 mg/dL (8.4-10.2); Carbon Dioxide 25 mmol/L (22-29); Chloride 107 mmol/L (96-108); Estimated Glomerular Filt Rate > 60; Glucose Random 83 mg/dL (60-115); Potassium 3.9 mmol/L (3.3-5.1); Sodium 142 mmol/L (135-145); Total Protein 6.9 g/dL (6.5-8.0)
[2023-03-15 11:10] LABS: Erythrocyte Sedimentation Rate 14 MM/HR (0-20)
== END 2023-03-15 10:29 | disposition home or self-care (01) ==
LOC: HO.MDS 10:28
PROVIDERS: Visit Provider Internal Medicine Gastroenterology
DX: K50.90 Crohn's disease, unspecified, without complications (principal)
CPT/HCPCS: 36415; 80053; 85025; 85652; 86140; 96365; 96375; J1200; J3380

== ENCOUNTER 2023-04-04 10:50 | Outpatient (REF) | payer MEDICARE, MEDICAID, SELFPAY | END 2023-04-04 10:51 | disposition home or self-care (01) | LOC: HO.BBR 10:50 | PROVIDERS: Visit Provider Internal Medicine Medical Oncology | DX: D75.1 Secondary polycythemia (principal) | CPT/HCPCS: 85014; 85018; 99195 ==

== ENCOUNTER 2023-06-04 11:04 | Outpatient (REF) | payer MEDICARE, MEDICAID, SELFPAY | END 2023-06-04 11:05 | disposition home or self-care (01) | LOC: HO.BBR 11:04 | PROVIDERS: Visit Provider Internal Medicine Medical Oncology | DX: D75.1 Secondary polycythemia (principal) | CPT/HCPCS: 85018 ==

== ENCOUNTER 2023-06-06 10:50 | Outpatient (REF) | payer MEDICARE, MEDICAID, SELFPAY ==
[2023-06-06 11:36] LABS: Hematocrit 42.9 % (37.0-47.0); Hemoglobin 14.2 g/dl (12.0-16.0); Mean Corpuscular HGB Conc 33.1 g/dl (31.0-35.0); Mean Corpuscular Hemoglobin 29.1 pg (27.0-33.0); Mean Corpuscular Volume 87.9 fL (80.0-98.0); Mean Platelet Volume 9.1 fL (9.4-12.3); Platelet Count 280 X10*3/uL (160-400); Red Blood Count 4.88 X10*6/uL (4.20-5.50); White Blood Count 5.8 X10*3/uL (4.8-10.8)
[2023-06-06 11:52] LABS: Alanine Aminotransferase 6 U/L (0-31); Albumin Level 3.9 g/dL (3.5-5.0); Alkaline Phosphatase 96 U/L (39-117); Anion Gap 11 (12-20); Aspartate Amino Transferase 12 U/L (5-31); Bilirubin Total 0.3 mg/dL (0.0-1.0); Blood Urea Nitrogen 12 mg/dL (9-16); C Reactive Protein 0.74 mg/dL (< or = 0.50); Calcium 9.4 mg/dL (8.4-10.2); Carbon Dioxide 28 mmol/L (22-29); Chloride 108 mmol/L (96-108); Estimated Glomerular Filt Rate > 60; Glucose Random 89 mg/dL (60-115); Potassium 4.3 mmol/L (3.3-5.1); Sodium 143 mmol/L (135-145); Total Protein 7.4 g/dL (6.5-8.0)
[2023-06-06 12:24] LABS: Erythrocyte Sedimentation Rate 21 MM/HR (0-20)
[2023-06-08 22:14] LABS: TS Negative Control Passed; TS Panel A 0; TS Panel B 0; TS Positive Control Passed; TSpotTB Negative (Negative)
== END 2023-06-06 10:51 | disposition home or self-care (01) ==
LOC: HO.MDS 10:50
PROVIDERS: Visit Provider Internal Medicine Gastroenterology
DX: K50.90 Crohn's disease, unspecified, without complications (principal); Z11.1 Encounter for screening for respiratory tuberculosis
CPT/HCPCS: 36415; 80053; 85027; 85652; 86140; 86481; 96365; 96375; J1200; J3380

== ENCOUNTER 2023-07-18 11:14 | Outpatient (REF) | payer MEDICARE, MEDICAID, SELFPAY ==
[2023-07-18 12:46] LABS: MANUAL DIFF FLAG NO
[2023-07-18 12:50] LABS: Basophils Percent Auto 0.6 % (0-2); Eosinophils Absolute Auto 0.1 X10*3/uL (0.0-0.4); Eosinophils Percent Auto 2.8 % (0-4); Hematocrit 43.1 % (37.0-47.0); Hemoglobin 13.8 g/dl (12.0-16.0); Imm Gran Abs Auto 0.01 X10*3/uL (0.00-0.03); Imm Gran Pct Auto 0.2 % (0.0-0.4); Lymphocytes Absolute Auto 1.2 X10*3/uL (1.2-4.9); Lymphocytes Percent Auto 25.2 % (20-40); Mean Corpuscular Hemoglobin 27.5 pg (27.0-33.0); Mean Corpuscular Volume 85.9 fL (80.0-98.0); Mean Platelet Volume 8.8 fL (9.4-12.3); Monocytes Absolute Auto 0.3 X10*3/uL (0.1-1.2); Monocytes Percent Auto 6.3 % (2-11); Neutrophils Absolute Auto 3.2 x10*3/uL (2.0-8.3); Neutrophils Percent Auto 64.9 % (45-73); Platelet Count 258 X10*3/uL (160-400); Red Blood Count 5.02 X10*6/uL (4.20-5.50); Red Cell Distribution Width 15.7 % (11.0-16.0); White Blood Count 4.9 X10*3/uL (4.8-10.8)
[2023-07-18 13:01] LABS: Anion Gap 11 (12-20); Blood Urea Nitrogen 14 mg/dL (9-16); C Reactive Protein 0.81 mg/dL (< or = 0.50); Calcium 9.6 mg/dL (8.4-10.2); Carbon Dioxide 29 mmol/L (22-29); Chloride 105 mmol/L (96-108); Estimated Glomerular Filt Rate > 60; Glucose Random 93 mg/dL (60-115); Potassium 4.7 mmol/L (3.3-5.1); Sodium 140 mmol/L (135-145)
== END 2023-07-18 11:15 | disposition home or self-care (01) ==
LOC: HO.MDS 11:14
PROVIDERS: Visit Provider Internal Medicine Gastroenterology
DX: K50.90 Crohn's disease, unspecified, without complications (principal)
CPT/HCPCS: 36415; 80048; 85025; 86140; 96365; 96375; J1200; J3380

== ENCOUNTER 2023-10-21 10:57 | Outpatient (REF) | payer MEDICARE, MEDICAID, SELFPAY ==
[2023-10-21 11:53] LABS: Hematocrit 42.9 % (37.0-47.0); Hemoglobin 14.1 g/dl (12.0-16.0); Mean Corpuscular HGB Conc 32.9 g/dl (31.0-35.0); Mean Corpuscular Hemoglobin 28.9 pg (27.0-33.0); Mean Corpuscular Volume 87.9 fL (80.0-98.0); Mean Platelet Volume 9.2 fL (9.4-12.3); Platelet Count 250 X10*3/uL (160-400); Red Blood Count 4.88 X10*6/uL (4.20-5.50); Red Cell Distribution Width 17.2 % (11.0-16.0); White Blood Count 5.2 X10*3/uL (4.8-10.8)
[2023-10-21 12:07] LABS: Anion Gap 9 (12-20); Blood Urea Nitrogen 9 mg/dL (9-16); C Reactive Protein 0.76 mg/dL (< or = 0.50); Calcium 8.6 mg/dL (8.4-10.2); Carbon Dioxide 24 mmol/L (22-29); Chloride 110 mmol/L (96-108); Estimated Glomerular Filt Rate > 60; Glucose Random 90 mg/dL (60-115); Potassium 3.7 mmol/L (3.3-5.1); Sodium 139 mmol/L (135-145)
== END 2023-10-21 10:58 | disposition home or self-care (01) ==
LOC: HO.MDS 10:57
PROVIDERS: Visit Provider Internal Medicine Gastroenterology
DX: K50.90 Crohn's disease, unspecified, without complications (principal)
CPT/HCPCS: 36415; 80048; 85027; 86140; 96365; 96375; J1200; J1720; J3380

== ENCOUNTER 2023-10-28 10:41 | Outpatient (REF) | payer MEDICARE, MEDICAID, SELFPAY | END 2023-10-28 10:42 | disposition home or self-care (01) | LOC: HO.BBR 10:41 | PROVIDERS: PCP Internal Medicine; Visit Provider Internal Medicine Medical Oncology | DX: D75.1 Secondary polycythemia (principal) | CPT/HCPCS: 85018; 99195 ==

== ENCOUNTER 2023-12-23 08:08 | Outpatient (REF) | payer MEDICARE, MEDICAID, SELFPAY | END 2023-12-23 08:09 | disposition home or self-care (01) | LOC: HO.BBR 08:08 | PROVIDERS: PCP Internal Medicine; Visit Provider Internal Medicine Medical Oncology | DX: Z13.89 Encounter for screening for other disorder (principal) | CPT/HCPCS: 85018; 99195 ==

== ENCOUNTER 2023-12-23 08:31 | Outpatient (REF) | payer MEDICARE, MEDICAID, SELFPAY ==
[2023-12-23 08:36] VITALS: BP 96/63; PULSE 83; RESP 16; TEMP 37; O2SAT 98
[2023-12-23 09:01] LABS: MANUAL DIFF FLAG NO
[2023-12-23] MEDS: Hydrocortisone Sod Succ/PF 100 MG VIAL IVPUSH (09:01)
[2023-12-23] MEDS: diphenhydrAMINE HCL 50 MG/ML VIAL 25 MG IVPUSH (09:01)
[2023-12-23 09:04] LABS: Basophils Percent Auto 0.7 % (0-2); Eosinophils Absolute Auto 0.1 X10*3/uL (0.0-0.4); Hematocrit 46.3 % (37.0-47.0); Hemoglobin 15.1 g/dl (12.0-16.0); Imm Gran Abs Auto 0.01 X10*3/uL (0.00-0.03); Imm Gran Pct Auto 0.2 % (0.0-0.4); Lymphocytes Absolute Auto 0.9 X10*3/uL (1.2-4.9); Mean Corpuscular HGB Conc 32.6 g/dl (31.0-35.0); Mean Corpuscular Hemoglobin 29.6 pg (27.0-33.0); Mean Corpuscular Volume 90.8 fL (80.0-98.0); Monocytes Absolute Auto 0.3 X10*3/uL (0.1-1.2); Monocytes Percent Auto 6.8 % (2-11); Neutrophils Absolute Auto 2.9 x10*3/uL (2.0-8.3); Neutrophils Percent Auto 67.3 % (45-73); Platelet Count 214 X10*3/uL (160-400); Red Cell Distribution Width 14.4 % (11.0-16.0); White Blood Count 4.3 X10*3/uL (4.8-10.8)
[2023-12-23 09:22] LABS: Anion Gap 12 (12-20); Blood Urea Nitrogen 10 mg/dL (9-16); C Reactive Protein 0.63 mg/dL (< or = 0.50); Calcium 9.2 mg/dL (8.4-10.2); Carbon Dioxide 27 mmol/L (22-29); Chloride 106 mmol/L (96-108); Estimated Glomerular Filt Rate > 60; Glucose Random 108 mg/dL (60-115); Potassium 4.6 mmol/L (3.3-5.1); Sodium 140 mmol/L (135-145)
[2023-12-23] MEDS: Vedolizumab 300 MG in 0.9 % Sodium Chloride 250 ML 510 MG IV (09:52)
== END 2023-12-23 08:32 | disposition home or self-care (01) ==
LOC: HO.MDS 08:31
PROVIDERS: Visit Provider Internal Medicine Gastroenterology
DX: K50.90 Crohn's disease, unspecified, without complications (principal)
CPT/HCPCS: 36415; 80048; 85018; 85025; 86140; 96365; 96375; J1200; J1720; J3380

== ENCOUNTER 2024-03-04 13:17 | Outpatient (REF) | payer MEDICARE, MEDICAID, SELFPAY | END 2024-03-04 13:18 | disposition home or self-care (01) | LOC: HO.BBR 13:17 | PROVIDERS: PCP Internal Medicine; Visit Provider Internal Medicine Medical Oncology | DX: D75.1 Secondary polycythemia (principal) | CPT/HCPCS: 85018; 99195 ==

== ENCOUNTER 2024-04-06 11:00 | Outpatient (RCR) | payer MEDICARE, MEDICAID, SELFPAY ==
[2024-02-10 10:56] VITALS: BMI 32.0
[2024-02-10 10:59] VITALS: BP 103/73; PULSE 88; RESP 18; TEMP 37.1; O2SAT 99
--- NOTE | 2024-02-10 11:05 | HO.INF ---
11:10am- labs ordered, phlebotomy called.
[2024-02-10 11:36] LABS: Hematocrit 45.2 % (37.0-47.0); Hemoglobin 15.1 g/dl (12.0-16.0); Mean Corpuscular HGB Conc 33.4 g/dl (31.0-35.0); Mean Corpuscular Hemoglobin 29.3 pg (27.0-33.0); Mean Corpuscular Volume 87.8 fL (80.0-98.0); Mean Platelet Volume 9.1 fL (9.4-12.3); Platelet Count 214 X10*3/uL (160-400); Red Blood Count 5.15 X10*6/uL (4.20-5.50); Red Cell Distribution Width 15.5 % (11.0-16.0); White Blood Count 4.1 X10*3/uL (4.8-10.8)
[2024-02-10] MEDS: diphenhydrAMINE HCL 50 MG/ML VIAL 25 MG IVPUSH (11:39)
[2024-02-10] MEDS: 0.9 % Sodium Chloride Flush 10 ML SYRINGE 5 ML IVFLUSH (11:40)
[2024-02-10] MEDS: Hydrocortisone Sod Succ/PF 100 MG VIAL IVPUSH (11:41)
[2024-02-10 11:47] LABS: Anion Gap 12 (12-20); Blood Urea Nitrogen 11 mg/dL (9-16); C Reactive Protein 0.88 mg/dL (< or = 0.50); Calcium 9.5 mg/dL (8.4-10.2); Carbon Dioxide 27 mmol/L (22-29); Chloride 108 mmol/L (96-108); Creatinine Clr Calc Pharmacy 92.9; Estimated Glomerular Filt Rate > 60; Glucose Random 90 mg/dL (60-115); Sodium 143 mmol/L (135-145)
[2024-02-10] MEDS: Vedolizumab 300 MG in 0.9 % Sodium Chloride 250 ML 510 MG IV (11:50)
--- NOTE | 2024-02-10 11:53 | HO.INF ---
11:25am- lab in. blood drawn
[2024-02-10 11:54] VITALS: BP 101/67; PULSE 72; RESP 18
[2024-02-10 12:01] VITALS: BP 97/65; PULSE 72; RESP 16
[2024-02-10 12:20] VITALS: BP 105/65; PULSE 71; RESP 16
[2024-04-06 11:05] VITALS: BP 94/61; PULSE 80; RESP 16; TEMP 36.3; O2SAT 100
[2024-04-06] MEDS: diphenhydrAMINE HCL 50 MG/ML VIAL 25 MG IVPUSH (11:47)
[2024-04-06] MEDS: Hydrocortisone Sod Succ/PF 100 MG VIAL IVPUSH (11:48)
[2024-04-06 12:17] LABS: MANUAL DIFF FLAG NO
[2024-04-06 12:19] LABS: Basophils Percent Auto 0.6 % (0-2); Eosinophils Absolute Auto 0.1 X10*3/uL (0.0-0.4); Eosinophils Percent Auto 2.1 % (0-4); Hematocrit 45.5 % (37.0-47.0); Hemoglobin 14.9 g/dl (12.0-16.0); Imm Gran Abs Auto 0.02 X10*3/uL (0.00-0.03); Imm Gran Pct Auto 0.4 % (0.0-0.4); Lymphocytes Percent Auto 19.8 % (20-40); Mean Corpuscular HGB Conc 32.7 g/dl (31.0-35.0); Mean Corpuscular Hemoglobin 29.8 pg (27.0-33.0); Monocytes Absolute Auto 0.3 X10*3/uL (0.1-1.2); Neutrophils Absolute Auto 3.7 x10*3/uL (2.0-8.3); Neutrophils Percent Auto 71.1 % (45-73); Platelet Count 222 X10*3/uL (160-400); Red Cell Distribution Width 15.6 % (11.0-16.0); White Blood Count 5.2 X10*3/uL (4.8-10.8)
[2024-04-06] MEDS: Vedolizumab 300 MG in 0.9 % Sodium Chloride 250 ML 510 MG IV (12:21)
[2024-04-06 12:31] LABS: Anion Gap 13 (12-20); Blood Urea Nitrogen 10 mg/dL (9-16); C Reactive Protein 0.87 mg/dL (< or = 0.50); Calcium 9.2 mg/dL (8.4-10.2); Carbon Dioxide 29 mmol/L (22-29); Chloride 105 mmol/L (96-108); Creatinine Clr Calc Pharmacy 71.1; Estimated Glomerular Filt Rate > 60; Glucose Random 111 mg/dL (60-115); Potassium 4.6 mmol/L (3.3-5.1); Sodium 142 mmol/L (135-145)
[2024-04-06] MEDS: 0.9 % Sodium Chloride Flush 10 ML SYRINGE 5 ML IVFLUSH (12:51)
== END 2024-06-30 11:20 | disposition home or self-care (01) ==
LOC: HO.INF 11:00
PROVIDERS: Visit Provider Internal Medicine Gastroenterology
DX: K50.90 Crohn's disease, unspecified, without complications (principal)
CPT/HCPCS: 36415; 80048; 85025; 85027; 86140; 96365; 96375; J1200; J1720; J3380

== ENCOUNTER 2024-05-06 11:05 | Outpatient (REF) | payer MEDICARE, MEDICAID, SELFPAY | END 2024-05-06 11:06 | disposition home or self-care (01) | LOC: HO.BBR 11:05 | PROVIDERS: PCP Internal Medicine; Visit Provider Internal Medicine Medical Oncology | DX: D75.1 Secondary polycythemia (principal) | CPT/HCPCS: 85018; 99195 ==

== ENCOUNTER 2024-05-19 13:57 | Outpatient (REF) | payer MEDICARE, MEDICAID, SELFPAY ==
[2024-05-19 14:02] LABS: Appearance Urine Clear; Color Urine Yellow; Glucose Urine UA Negative (Negative); Leukocyte Esterase Urine Negative (Negative); Nitrite Urine Negative (Negative); PH 6.5 (5.0-9.0); UMIC TRIGGER UACC YES; Urine Blood Trace (Negative); Urine Ketones Negative (Negative); Urine Protein Trace mg/dL (Neg-Trace)
[2024-05-19 14:05] LABS: Bacteria Urine None Seen (None Seen); Hyaline Casts Urine 0-2 /LPF (0-2); Squamous Epithelial Cell Urine 0-2 /HPF (0-2); WBC Urine 0-5 /HPF (0-5)
[2024-05-28 00:33] LABS: Lactoferrin, Fecal, Quant. <6.25 mcg/mL (<7.25)
== END 2024-05-19 13:58 | disposition home or self-care (01) ==
LOC: HO.LNP 13:57
PROVIDERS: Visit Provider Internal Medicine Gastroenterology
DX: K51.50 Left sided colitis without complications (principal)
CPT/HCPCS: 81001; 81003; 83631

== ENCOUNTER 2024-05-26 09:25 | Outpatient (REF) | payer MEDICARE, MEDICAID, SELFPAY ==
--- NOTE | ~2024-05-26 | US_ITS ---
EXAMINATION: US ABDOMEN COMPLETE CLINICAL INFORMATION: Crohn's disease, unspecified with unspecified complications. Left-sided abdominal pain. COMPARISON: CT abdomen and pelvis 01/04/2023. Ultrasound abdomen complete 06/01/2022 and 04/28/2020. TECHNIQUE: Real-time imaging of the abdominal viscera. FINDINGS: PANCREAS: Normal. ABDOMINAL AORTA: The proximal, mid, and distal segments are normal in caliber. INFERIOR VENA CAVA: Visualized portions are normal. LIVER: The liver is normal in size. The liver contour is normal. Parenchymal echogenicity is normal. 1.5 cm hyperechoic liver lesion in the right hepatic lobe similar to prior CT which may reflect a hemangioma. There is no intrahepatic biliary duct dilatation seen. GALLBLADDER: Normal. The gallbladder is physiologically distended without evidence of stones, sludge, polyps, wall thickening or pericholecystic fluid. COMMON BILE DUCT: Normal in caliber measuring 0.4 cm in diameter. RIGHT KIDNEY: Normal. No hydronephrosis. No renal calculi or focal parenchymal lesions. The kidney measures 10.6 cm in maximum dimension. LEFT KIDNEY: Benign-appearing renal cyst measuring 2.3 cm. No follow up imaging is recommended. No hydronephrosis or renal calculi. The kidney measures 11.0 cm in maximum dimension. SPLEEN: Accessory splenule noted. A 4.2 cm septated splenic cyst, previously 3.9 cm. The spleen measures 9.8 cm in maximum dimension. FREE FLUID: None. US/US abdomen complete IMPRESSION: 1. No acute findings to explain symptoms of abdominal pain. 2. A 4.2 cm septated splenic cyst, increased in size from prior. 3. A 1.5 cm hyperechoic liver lesion in the right hepatic lobe similar to prior CT which may reflect a hemangioma. Electronically signed by: Moira Brizuela MD 06/11/2024 09:41 PM EDT
== END 2024-05-26 09:26 | disposition home or self-care (01) ==
LOC: HO.US 09:25
PROVIDERS: PCP Internal Medicine; Visit Provider Internal Medicine Gastroenterology
DX: K50.919 Crohn's disease, unspecified, with unspecified complications (principal)
CPT/HCPCS: 76700

== ENCOUNTER 2024-06-12 10:05 | Outpatient (AMB) | payer MEDICARE, MEDICAID, SELFPAY ==
--- NOTE | 2024-06-12 10:07 | MHC.OFFVIS ---
Vital Signs 06/12/24 10:11 Height 5 ft 2 in Weight 163 lb 2.273 oz BMI 29.8 Blood Pressure Location Lt brachial Position Sitting Intake Visit Reasons: crohns follow up Intake Note: Augusta presents in the office as a follow up to Crohns. CC: States that she was on entyvio but trying to start up on the new medication. No concerns at this time and denies any GI symptoms. Allergies aspirin [ASA] Allergy (Mild, Verified 06/12/24 10:11) GI UPSET, nausea and vomiting HPI HPI crohns follow up: Details: 64 yr old f being seen for f/u for crohns RECAP: had colonoscopy 01/2017 with ileitis and tubular adenoma removed capsule endoscopy with small bowel erosions CT with descending/sigmoid colitis raised calprotectin then commenced on entyvio 03/2018 entyvio level 12/2016 good 17, no ab detected monitr test - remission fecal leslie 05/2019- <15 VCE: no erosions, polyp seen in colon colonoscopy 02/2019- polyps removed, bx taken were negative HM: received pneumonia vaccine, TB spot neg, lichen sclerosis of vulva she was getting pain after urination, has seen urology for hematuria with inconclusive findings, i tried to order MR urogram had issues at [place] ordering this-so Ct urogram ordered CT urogram: 08/2019--normal kidneys and bladder, stable adrenal adenoma left side, normal GI tract 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 VITAL SIGNS:see workflow HEENT: Nonicteric sclerae, PERRLA, EOMI. Oropharynx clear. Moist mucous membranes. Conjunctivae appear well perfused. No thyroid mass. CHEST: Chest wall is nontender. HEART: Regular rate and rhythm without murmurs. LUNGS: Clear to auscultation bilaterally. ABDOMEN: Soft, positive bowel sounds, tender LUQ and flank, no organomegaly. SKIN: No rash, no excessive bruising, petechiae, or purpura. NEUROLOGIC: Cranial nerves II-XII intact without motor/sensory deficit. A/P: 1/ Crohn''s disease of both small and large intestine-- breakthru with entyvio incl scleritis PLAN: 1/ change to remicade 5 mg/kg and will add low dose imuran 2/ check tb spot and tpmt levels 3/ advised on smoking cessation 4/ advised to see PCP for c smear, keep up to date for mammograms, etc PFSH Medical History Neck pain Back pain at L4-L5 level Migraines Nausea and vomiting Depression Anxiety H/O hematuria Crohn's disease Surgical History H/O hand surgery H/O brain surgery Hx of breast reduction, elective History of partial hysterectomy Hx of endoscopy History of colonoscopy H/O removal of cyst Family History Father Cancer Mother Hx of acute heart failure Social History Household Members: Children Housing: House Are you a primary dog daycare provider to a significant other at home: No Do you presently have visiting nurse or other home services: No (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[employer]) Patient Tobacco Use Status: Current everyday Tobacco user Tobacco use type: Cigarette Cigarettes Per Day: 2 Substance Use Type: Marijuana service: No Current occupational status: unemployed Physical Exam Vital Signs: BMI result Body Mass Index 29.8 Assessment & Plan Assessment & Plan (1) Crohn's disease: Code(s): K50.90 - Crohn's disease, unspecified, without complications Category: Medical Qualifiers: Gastrointestinal tract location: unspecified location Digestive disease complication type: unspecified complication Qualified Code(s): K50.919 - Crohn's disease, unspecified, with unspecified complications Plan: see above Orders: Orders T Spot TB Today K50.919 - Crohn's disease, unspecified, with unspecified complications Prometheus TPMT Enzyme Today K50.919 - Crohn's disease, unspecified, with unspecified complications Coding Level of Care Code Est Pt Level 3 (68985) Diagnoses Crohn's disease with complication, unspecified gastrointestinal tract location K50.919 Gastrointestinal tract location: unspecified location Digestive disease complication type: unspecified complication
[2024-06-12 10:11] VITALS: BMI 29.8
== END 2024-06-12 11:00 | disposition home or self-care (01) ==
PROVIDERS: PCP Internal Medicine; Visit Provider Internal Medicine Gastroenterology
DX: K50.919 Crohn's disease, unspecified, with unspecified complications (principal)
CPT/HCPCS: 99213

== ENCOUNTER 2024-06-12 10:05 | Outpatient (REF) | payer MEDICARE, MEDICAID, SELFPAY ==
[2024-06-12 11:52] LABS: Appearance Urine Clear; Color Urine Yellow; Glucose Urine UA Negative (Negative); Leukocyte Esterase Urine Negative (Negative); Nitrite Urine Negative (Negative); PH 5.5 (5.0-9.0); UMIC TRIGGER UACC YES; Urine Blood Small (1+) (Negative); Urine Ketones Negative (Negative); Urine Protein Negative (Neg-Trace)
[2024-06-12 12:11] LABS: Bacteria Urine None Seen (None Seen); Hyaline Casts Urine 0-2 /LPF (0-2); Squamous Epithelial Cell Urine 0-2 /HPF (0-2); WBC Urine 0-5 /HPF (0-5)
[2024-06-15 22:28] LABS: TS Negative Control Passed; TS Panel A 0; TS Panel B 0; TS Positive Control Passed; TSpotTB Negative (Negative)
== END 2024-06-12 10:06 | disposition home or self-care (01) ==
LOC: HO.LAB 10:05
PROVIDERS: PCP Internal Medicine; Visit Provider Internal Medicine Gastroenterology
DX: K50.919 Crohn's disease, unspecified, with unspecified complications (principal); R30.0 Dysuria
CPT/HCPCS: 36415; 81001; 81003; 86481; 99212

== ENCOUNTER 2024-07-06 11:04 | Outpatient (REF) | payer MEDICARE, MEDICAID, SELFPAY | END 2024-07-06 11:05 | disposition home or self-care (01) | LOC: HO.BBR 11:04 | PROVIDERS: PCP Internal Medicine; Visit Provider Internal Medicine Medical Oncology | DX: D75.1 Secondary polycythemia (principal) | CPT/HCPCS: 85018; 99195 ==

== ENCOUNTER 2024-09-08 10:54 | Outpatient (REF) | payer MEDICARE, MEDICAID, SELFPAY | END 2024-09-08 10:55 | disposition home or self-care (01) | LOC: HO.BBR 10:54 | PROVIDERS: PCP Internal Medicine; Visit Provider Internal Medicine Medical Oncology | DX: D75.1 Secondary polycythemia (principal) | CPT/HCPCS: 85014; 85018; 99195 ==

== ENCOUNTER 2024-09-14 10:48 | Outpatient (REF) | payer MEDICARE, MEDICAID, SELFPAY ==
[2024-09-14 12:07] LABS: MANUAL DIFF FLAG NO
[2024-09-14 13:00] LABS: Basophils Percent Auto 0.6 % (0-2); Eosinophils Absolute Auto 0.1 X10*3/uL (0.0-0.4); Eosinophils Percent Auto 3.4 % (0-4); Hematocrit 42.2 % (37.0-47.0); Hemoglobin 13.9 g/dl (12.0-16.0); Lymphocytes Percent Auto 30.7 % (20-40); Mean Corpuscular HGB Conc 32.9 g/dl (31.0-35.0); Mean Corpuscular Hemoglobin 29.6 pg (27.0-33.0); Mean Platelet Volume 9.6 fL (9.4-12.3); Monocytes Absolute Auto 0.3 X10*3/uL (0.1-1.2); Monocytes Percent Auto 7.7 % (2-11); Neutrophils Absolute Auto 1.9 x10*3/uL (2.0-8.3); Neutrophils Percent Auto 57.6 % (45-73); Platelet Count 249 X10*3/uL (160-400); Red Blood Count 4.69 X10*6/uL (4.20-5.50); White Blood Count 3.3 X10*3/uL (4.8-10.8)
[2024-09-14 13:32] LABS: Alanine Aminotransferase 17 U/L (0-31); Albumin Level 4.2 g/dL (3.5-5.0); Alkaline Phosphatase 66 U/L (39-117); Anion Gap 10 (12-20); Aspartate Amino Transferase 22 U/L (5-31); Bilirubin Total 0.5 mg/dL (0.0-1.0); Blood Urea Nitrogen 14 mg/dL (9-16); Calcium 9.5 mg/dL (8.4-10.2); Carbon Dioxide 29 mmol/L (22-29); Chloride 105 mmol/L (96-108); Estimated Glomerular Filt Rate > 60; Glucose Random 100 mg/dL (60-115); Magnesium 2.3 mg/dL (1.6-2.6); Potassium 4.7 mmol/L (3.3-5.1); Sodium 139 mmol/L (135-145); Total Protein 7.6 g/dL (6.5-8.0)
[2024-09-14 13:36] LABS: Ferritin 12 ng/mL (10-250); Vitamin D 25-OH Total 22.9 ng/mL (>30)
[2024-09-14 13:40] LABS: Appearance Urine Clear; Color Urine Yellow; Glucose Urine UA Negative (Negative); Leukocyte Esterase Urine Negative (Negative); Nitrite Urine Negative (Negative); PH 6.5 (5.0-9.0); UMIC TRIGGER UACC YES; Urine Blood Trace (Negative); Urine Ketones Negative (Negative); Urine Protein Negative (Neg-Trace)
[2024-09-14 13:42] LABS: Vitamin B12 475 pg/mL (200-900)
[2024-09-14 13:44] LABS: Bacteria Urine None Seen (None Seen); Hyaline Casts Urine 0-2 /LPF (0-2); Squamous Epithelial Cell Urine 0-2 /HPF (0-2); WBC Urine 0-5 /HPF (0-5)
[2024-09-17 19:38] LABS: Alpha-Tocopherol 11.9 mg/L (5.7-19.9); Beta-Gamma Tocopherol 1.1 mg/L (<=4.3); Vitamin A 57 mcg/dL (38-98)
[2024-09-18 13:34] LABS: Vitamin C <0.1 mg/dL (0.3-2.7)
[2024-09-19 16:14] LABS: Nicotinamide <20 ng/mL (see note); Vit B3 - Nicotinic Acid <20 ng/mL (see note); Vitamin B5 (Pantothenic Acid) <=40 ng/mL (<275)
[2024-09-19 20:08] LABS: Vitamin K1 227 pg/mL (130-1500)
[2024-09-20 15:19] LABS: Vitamin B1 22 nmol/L (8-30)
[2024-09-21 06:23] LABS: Vitamin B6 12.5 ng/mL (2.1-21.7)
== END 2024-09-14 10:49 | disposition home or self-care (01) ==
LOC: HO.LAB 10:48
PROVIDERS: PCP Internal Medicine; Visit Provider Internal Medicine Gastroenterology
DX: K50.919 Crohn's disease, unspecified, with unspecified complications (principal); E83.52 Hypercalcemia; K75.81 Nonalcoholic steatohepatitis (NASH)
CPT/HCPCS: 36415; 80053; 81001; 82180; 82306; 82607; 82728; 82746; 83735; 84100; 84207; 84425; 84446; 84590; 84591; 84597; 84630; 85025; 99212

== ENCOUNTER 2024-11-17 10:57 | Outpatient (REF) | payer MEDICARE, MEDICAID, SELFPAY ==
--- OUTSIDE RECORDS SUMMARY | 2024-11-17 12:07 | XMS_ITS | Clinical Summary ---
Author Organization [facility] it Address [address] [place] [address] Care Team Providers Care Manufacturing Finance Manager Name Role Phone Rocio Palmer MD Primary Care Provider Social History Tobacco Use Types Packs/Day Years Used Date Smoking Tobacco: Never Assessed Comments Unknown Sex and Gender Information Value Date Recorded Sex Assigned at Not on file Legal Sex Female 11:37 PM EST Gender Identity Not on file Sexual Orientation Not on file Plan of Treatment Health Maintenance Due Date Last Done Comments Breast Cancer Screening 1962 DTaP,Tdap,and Td Vaccines (1 - Tdap) 1981 Cervical Cancer Screening: P ap Smear 1983 Pneumococcal Vaccine: 50+ Ye ars (1 of 1 - PCV) 2012 Zoster Vaccines (2 of 2) 04/10/2019 02/13/2019 Colorectal Cancer Screening: Colonoscopy 09/02/2022 Depression Screening 09/02/2022 HIV Screening 09/02/2022 Hepatitis C Screening 09/02/2022 Social Influencers of Health Screening 09/02/2022 COVID-19 Vaccine ( - 2023-2 5 season) 2024 Influenza Vaccine (#1) 2024 RSV Immunization Patients 60 + Years Old (1 - 1-dose 75+ series) 2037 HIB Vaccines Aged Out No longer eligi ble based on patient's age to complete this topic HPV Vaccines Aged Out No longer eligi ble based on patient's age to complete this topic Hepatitis A Vaccines Aged Out No long er eligible based on patient's age to complete this topic Hepatitis B Vaccines Aged Out No long er eligible based on patient's age to complete this topic IPV Vaccines Aged Out No longer eligi ble based on patient's age to complete this topic MMR Vaccines Aged Out No longer eligi ble based on patient's age to complete this topic Meningococcal ACWY Vaccine Aged Out N o longer eligible based on patient's age to complete this topic Meningococcal B Vacine Aged Out No lo nger eligible based on patient's age to complete this topic Pneumococcal Vaccine: Pediat rics (0 to 5 Years) and At-Risk Patients (6 to 64 Years) Aged Out No longer eligi ble based on patient's age to complete this topic RSV Immunization Patients Un luann 20 months Aged Out No longer eligible b ased on patient's age to complete this topic Varicella Vaccines Aged Out No longer eligible based on patient's age to complete this topic Care Teams Manufacturing Finance Manager Relationship Specialty Start Date End Date Rocio Palmer MD [address] [place] PCP - General Internal Medicine 11/16/20
--- OUTSIDE RECORDS SUMMARY | 2024-11-17 12:07 | XMS_ITS | Clinical Summary ---
Author Organization [facility] Address [address] [place] [address] Care Team Providers Care Workforce Development Assistant Name Role Phone Rocio Palmer MD Primary Care Provider Social History Tobacco Use Types Packs/Day Years Used Date Smoking Tobacco: Never Assessed Sex and Gender Information Value Date Recorded Sex Assigned at Not on file Gender Identity Not on file Sexual Orientation Not on file Plan of Treatment Health Maintenance Due Date Last Done Comments Hepatitis C Screening 1962 COVID-19 Vaccine (#1) 1962 Depression Screening 1974 Preventative Health Evaluation 1980 DTap / Tdap / Td (1 - Tdap) 1981 Cervical Cancer Screening (P ap Smear) 1983 Colon Cancer Screening (Colonoscopy) 2007 Breast Cancer Screening (Mammogram) 2012 Shingrix-Zoster Vaccine (1 of 2) 2012 Influenza Vaccine (#1) 2024 RSV Adult > 60+ Yrs or Pregn ant (1 - 1-dose 75+ series) 2037 Hepatitis B Vaccines Aged Out No long er eligible based on patient's age to complete this topic Pneumococcal Vaccine Aged Out No long er eligible based on patient's age to complete this topic RSV Ped < 20 months Aged Out No longe r eligible based on patient's age to complete this topic Care Teams Workforce Development Assistant Relationship Specialty Start Date End Date Rocio Palmer MD [address] [place] [phone] PCP - General Internal Medicine 11/16/20
== END 2024-11-17 10:58 | disposition home or self-care (01) ==
LOC: HO.BBR 10:57
PROVIDERS: PCP Internal Medicine; Visit Provider Internal Medicine Medical Oncology
DX: D75.1 Secondary polycythemia (principal)
CPT/HCPCS: 85018; 99195

== ENCOUNTER 2025-01-15 10:47 | Outpatient (REF) | payer MEDICARE, MEDICAID, SELFPAY ==
--- OUTSIDE RECORDS SUMMARY | 2025-01-15 11:52 | XMS_ITS | Clinical Summary ---
Author Organization [facility] it Address [address] [place] [address] Care Team Providers Care Newspaper Photographer Name Role Phone Rocio Palmer MD Primary [...] - 2023-2 5 season) 2024 Influenza Vaccine (Season Ended) 2025 RSV Immunization Adult Patie nts (1 - 1-dose 75+ series) 2037 HIB [...] age to complete this topic Meningococcal B Vaccine Aged Out No l onger eligible based on patient's age to complete [...] age to complete this topic Care Teams Newspaper Photographer Relationship Specialty Start Date End Date Rocio Palmer MD [address] [place] PCP - General Internal Medicine 11/16/20
--- OUTSIDE RECORDS SUMMARY | 2025-01-15 11:52 | XMS_ITS | Clinical Summary ---
Author Organization [facility] Address [address] [place] [address] Care Team Providers Care Blanket Washer Name Role Phone Rocio Palmer MD Primary [...] age to complete this topic Care Teams Blanket Washer Relationship Specialty Start Date End Date Rocio Palmer MD [address] [place] [phone] PCP - General Internal Medicine 11/16/20
--- OUTSIDE RECORDS SUMMARY | 2025-01-15 11:52 | XMS_ITS | Patient Health Record ---
Author Organization [facility] Address [address] [place] [address] Support Name Relationship Address Phone Estela Chan Emergency Contact [address] [place] [address] Augusta Salas Guarantor Unknown Reason For Referral No Information Medications Medication SIG (Take, Route, Frequency, Duration) Notes Start Date End Date Status CYMBALTA 60 MG CAPSULE 30 1 DAILY for 0 *please review for potential update for e-prescription and drug interaction check* 06/22/2010 Active INDOMETHACIN 75 MG CAPSULE 60 1 BID for 30 *please review for potential update for e-prescription and drug interaction check* 08/29/2010 Active Plan Of Treatment No Information Insurance Providers Payer Name Payer Address Payer Phone Subscriber Number Group Number Insured Name Patient Relationship to Insured Coverage Start Date Coverage End Date MEDICARE B [address] [facility] [place] [id number] [phone] [id number] Augusta Salas Self - patient is the insured [place] [address] [place] [address] [phone] [id number] Augusta Salas Self - patient is the insured
== END 2025-01-15 10:48 | disposition home or self-care (01) ==
LOC: HO.BBR 10:47
PROVIDERS: Visit Provider Internal Medicine Medical Oncology
DX: D45 Polycythemia vera (principal)
CPT/HCPCS: 85014; 85018; 99195

== ENCOUNTER 2025-02-25 07:48 | Day surgery (SDC) | payer MEDICARE, MEDICAID, SELFPAY ==
--- OUTSIDE RECORDS SUMMARY | 2025-01-20 15:28 | XMS_ITS | Clinical Summary ---
Author Organization [facility] it Address [address] [place] [address] Care Team Providers Care Practice Consultant Name Role Phone Rocio Palmer MD Primary [...] age to complete this topic Care Teams Practice Consultant Relationship Specialty Start Date End Date Rocio Palmer MD [address] [place] PCP - General Internal Medicine 11/16/20
--- OUTSIDE RECORDS SUMMARY | 2025-01-20 15:28 | XMS_ITS | Clinical Summary ---
Author Organization [facility] Address [address] [place] [address] Care Team Providers Care Public Relations Counselor Name Role Phone Rocio Palmer MD Primary [...] age to complete this topic Care Teams Public Relations Counselor Relationship Specialty Start Date End Date Rocio Palmer MD [address] [place] [phone] PCP - General Internal Medicine 11/16/20
--- OUTSIDE RECORDS SUMMARY | 2025-01-20 15:28 | XMS_ITS | Patient Health Record ---
Author Organization [facility] Address [address] [place] [address] Support Name Relationship Address Phone Estela Chan Emergency Contact [address] [place] [address] Augusta Salas Guarantor Unknown Reason [...] End Date MEDICARE B [address] [facility] [place] [id number] [phone] [id number] Augusta Salas Self - patient is the insured [place] Medicaid [address] [place] [address] [phone] [id number] Augusta Salas Self - patient is the insured
--- NOTE | 2025-02-24 12:24 | HO.ANESPROP2 ---
Documented by User: Birdie Danielson NP 02/24/25 12:24 HPI - Anesthesia Eval Consult details Narrative: 64yo F for Upper Endoscopy and Colonoscopy PMFSH Active Problems Active Problems: All Active Problems Globus sensation (Acute) Erythrocytosis (Acute) Crohn's disease (Acute) Past Medical History Medical History Neck pain Back pain at L4-L5 level Migraines Nausea and vomiting Depression Anxiety H/O hematuria Crohn's disease Family History Family History Father Cancer Mother Hx of acute heart failure Surgical History Surgical History H/O hand surgery H/O brain surgery Hx of breast reduction, elective History of partial hysterectomy Hx of endoscopy History of colonoscopy H/O removal of cyst History of Problems with Anesthesia: No Social History Social History Household Members: Children Housing: House Are you a primary managed care director to a significant other at home: No Do you presently have visiting nurse or other home services: No Patient Tobacco Use Status: Current everyday Tobacco user Tobacco use type: Cigarette Cigarettes Per Day: 2 Smoked in Last 30 Days: Yes Patient Interested in Nicotine Replacement: No Substance Use Type: Marijuana Substance Use Frequency: Daily Have you been hit, kicked, punched, or otherwise hurt by someone within the past year? If so, by whom?: No Are you DNR?: No Advance Directives: No Advance Directives Information Provided: Yes Poor oral hygiene: Yes service: No Current occupational status: unemployed Meds Allergies Allergy/AdvReac Type Severity Reaction Status Date / Time aspirin [ASA] Allergy Mild GI UPSET, Verified 02/25/25 09:05 nausea and vomiting Home Medications ?Medication ?Instructions ?Recorded ?Confirmed ?Last Taken ?Type galcanezumab-gnlm 120 mg/mL 120 mg subcut QMONTH 07/21/20 02/25/25 Unknown History subcutaneous pen injector (Emgality Pen) duloxetine 60 mg capsule,delayed 60 mg PO 06/12/24 Unknown History release Assessment and Plan Assessment Anesthesia Assessment: Chart Reviewed Final Anesthetic Review History of Problems with Anesthesia: No Documented by User: Amos Lozano MD 02/25/25 10:05 PMF Past Medical History Medical History Neck pain Back pain at L4-L5 level Migraines Nausea and vomiting Depression Anxiety H/O hematuria Crohn's disease Family History Family History Father Cancer Mother Hx of acute heart failure Family history of problems with anesthesia: No Surgical History Surgical History H/O hand surgery H/O brain surgery Hx of breast reduction, elective History of partial hysterectomy Hx of endoscopy History of colonoscopy H/O removal of cyst Social History Social History Household Members: Children Housing: House Are you a primary managed care director to a significant other at home: No Do you presently have visiting nurse or other home services: No Patient Tobacco Use Status: Current everyday Tobacco user Tobacco use type: Cigarette Cigarettes Per Day: 2 Smoked in Last 30 Days: Yes Patient Interested in Nicotine Replacement: No Substance Use Type: Marijuana Substance Use Frequency: Daily Have you been hit, kicked, punched, or otherwise hurt by someone within the past year? If so, by whom?: No Are you DNR?: No Advance Directives: No Advance Directives Information Provided: Yes Poor oral hygiene: Yes service: No Current occupational status: unemployed Meds Allergies Allergy/AdvReac Type Severity Reaction Status Date / Time aspirin [ASA] Allergy Mild GI UPSET, Verified 02/25/25 09:05 nausea and vomiting Home Medications ?Medication ?Instructions ?Recorded ?Confirmed ?Last Taken ?Type galcanezumab-gnlm 120 mg/mL 120 mg subcut QMONTH 07/21/20 02/25/25 Unknown History subcutaneous pen injector (Emgality Pen) duloxetine 60 mg capsule,delayed 60 mg PO 06/12/24 Unknown History release Exam Airway Mallampati Class: II TM Dist: >3cm Neck ROM: Full Loose/Missing/Broken Teeth: Yes, Upper and Lower Heart: ok Lungs: ok Assessment and Plan Assessment Anesthesia Assessment: Anesthesia Plan Discussed Final Anesthetic Review Family History of Problems with Anesthesia: No NPO: Yes ASA Class: II Final Preanesthetic Review: No Changes in Pt Med Stat, Meds/Allgs Chart Reviewed, Consent Obtained/Reviewed and Anes Risks/Benef Reviewed Patient Risk: Low Procedure Risk: Intermediate Anesthetic Plan Anesthetic Plan: Agree w/ Assess. and Plan and TIVA Disposition: Standard PACU
[2025-02-25 08:47] VITALS: BMI 28.4
[2025-02-25] MEDS: Lactated Ringers 1,000 ML 100 ML IVCONT (09:02)
[2025-02-25 09:03] VITALS: BP 97/66; PULSE 66; RESP 18; TEMP 36.7; O2SAT 98
--- NOTE | 2025-02-25 10:00 | MHC.SHP ---
Pre-Procedural Eval Section A - 24 Hr Update-Section A only Date of Service: 02/25/25 Section B - Complete if H&P > 30 days Chief Complaint: Crohn's disease, unspecified, with unspecified com Relevant Family History (Specify if Yes): No Relevant Social History: Tobacco Use Present Medications: see Short Stay Collaborative assessment Medical History: Significant History (Neck pain Back pain at L4-L5 level Migraines Nausea and vomiting Depression Anxiety H/O hematuria Crohn's disease) History of Previous Operations: Relevant previous surgery/procedure and date(s) (H/O hand surgery H/O brain surgery Hx of breast reduction, elective History of partial hysterectomy Hx of endoscopy History of colonoscopy H/O removal of cyst) Allergies: Allergies Allergy/AdvReac Type Severity Reaction Status Date / Time aspirin [ASA] Allergy Mild GI UPSET, Verified 02/25/25 09:05 nausea and vomiting Review of Systems Sugical H&P ROS: Negative: Constitution, Cardiovascular, Respiratory, Neurological, Psychiatric, Hem-Onc, Allergic/Immunologic, Gastrointestinal, Genitourinary, Musculoskeletal, Integumentary, Endocrine and Eyes/Ears/Nose/Throat Exam Surgical H&P Exam: Normal: HEENT, Normal: Heart, Normal: Lungs, Normal: Extremities, Normal: Abdomen, Normal: Skin and Normal: Neurological Plan Diagnosis/Plan: Unchanged I have reviewed the history and physical and performed a pertinent physical examination on my patient. No changes have occurred unless specified. Time Spent With Patient Time: Total time managing care of this patient today ____ minutes.
--- NOTE | 2025-02-25 11:00 | HO.OPN-COLON ---
Colonoscopy Operative Note Operative Note Date of Service: 02/25/25 Narrative: Operative Information Procedure Description: EGD, Colonoscopy Indication: GERD, crohns and dysphagia Anesthesia: MAC FLEXIBLE TRANSORAL UPPER GASTROINTESTINAL ENDOSCOPY AND COLONOSCOPY PROCEDURE NOTE UPPER ENDOSCOPY Consent: Indications for the procedure and potential complications of bleeding, perforation, reaction to medications and missed diagnosis were discussed with the patient and informed consent was obtained. Instrument: Olympus GIF H 190 J mid size upper endoscope Monitoring: Vital signs and clinical assessment, continuous EKG monitoring, Pulse oximetry, Carbon Dioxide monitoring and blood pressure monitoring were done throughout the procedure. Procedure: The patient was placed in the left lateral decubitis position and pre-procedure medications were administered and a bite block was placed. The endoscope was inserted into the mouth and advanced under direct vision to the third part of duodenum. A careful inspection was made as the upper endoscope was withdrawn including a retroflexed examination of the proximal stomach; Findings and interventions are described below. Findings: Larynx:normal Esophagus: GE junction at 36 cm, diaphragm hiatus at 38 cm, with 2 cm sliding hiatal hernia, also esophagitis noted at GEJ with boggy mucosa, bx taken--balloon dilation at UES and LES to 20 mm, with superficial tear noted at UES Stomach: Mild erythema. Biopsies were obtained. Grade 2 flap valve on retroflexed examination of the cardia. Duodenum: Mild patchy erythema bx taken Intervention: Biopsies as noted above, balloon dilation COLONOSCOPY Instrument: Olympus variable stiffness pediatric scope 190L Colonoscopy Monitoring: Vital signs and clinical assessment, continuous EKG monitoring, Pulse oximetry, Carbon Dioxide monitoring and blood pressure monitoring were done throughout the procedure. Colon withdrawal time was 15 minutes. Procedure: The patient was placed in the left lateral decubitis position and pre-procedure medications were administered. After a digital rectal examination of the ano-rectum, the video colonoscope was inserted into the rectum and advanced through the colon to the cecum/TI. The colonoscope was slowly withdrawn in a retrograde panoramic fashion and the colon mucosa was carefully examined including a retroflexed view of the rectum. Findings and interventions are described below. Procedure Difficulty:moderate Findings: Terminal Ileum-normal, bx taken random bx taken from right, left and rectum Cecum: x 1 sessile polpy 3-4 mm removed with cold forceps Ascending Colon: x 1 sessile polyp 5-6 mm removed with cold forceps, x1 flat polyp 7-8 mm lifted with eleview and removed with cold snare Transverse Colon -normal Descending Colon:normal Sigmoid Colon: normal Rectum: Retroflexion with small internal hemorrhoids, grade I, x 5 sessile polyps 5-8 mm looked like hyperplastic polyps, removed with biopsy forceps Anorectum - normal Colon preparation: [place] Bowel Preparation Scale Right colon; 2 Transverse colon: 2 Left colon; 2 (0 = Unprepared colon segment with mucosa not seen due to solid stool that cannot be cleared. 1 = Portion of mucosa of the colon segment seen, but other areas of the colon segment not well seen due to staining, residual stool and/or opaque liquid. 2 = Minor amount of residual staining, small fragments of stool and/or opaque liquid, but mucosa of colon segment seen well. 3 = Entire mucosa of colon segment seen well with no residual staining, small fragments of stool or opaque liquid) Impression and Post Procedure Diagnosis: Endoscopy Findings: UES stricture gastritis esophagitis duodenitis Colonoscopy Findings: colon polyps internal hemorrhoids Plan: Await Pathology results Repeat Colonoscopy in 1-2 years due to polyps and IBD or earlier if clinically indicated High fiber diet leaflet avoid straining at stool, epsom salts and sitz bath, anusol supps or cream GERD precautions Above findings were reviewed with the patient and relevant handouts were provided if indicated.
[2025-02-25 11:07] VITALS: BP 103/62; PULSE 66; RESP 16; TEMP 36.1; O2SAT 97
[2025-02-25 11:21] VITALS: BP 103/58; PULSE 65; RESP 16; TEMP 36.1; O2SAT 99
== END 2025-02-25 12:05 | disposition home or self-care (01) ==
PROVIDERS: Visit Provider Internal Medicine Gastroenterology
PROC: (CPT 45385; principal; 2025-02-25 10:30)
DX: K50.90 Crohn's disease, unspecified, without complications (principal); D12.2 Benign neoplasm of ascending colon; K64.0 First degree hemorrhoids; K62.1 Rectal polyp; Z87.19 Personal history of other diseases of the digestive system; Z86.0101 Personal history of adenomatous and serrated colon polyps; K22.2 Esophageal obstruction; K20.80 Other esophagitis without bleeding; K29.80 Duodenitis without bleeding; K29.60 Other gastritis without bleeding; K31.89 Other diseases of stomach and duodenum; K44.9 Diaphragmatic hernia without obstruction or gangrene; K21.9 Gastro-esophageal reflux disease without esophagitis; R13.10 Dysphagia, unspecified; F17.210 Nicotine dependence, cigarettes, uncomplicated; F12.90 Cannabis use, unspecified, uncomplicated; Z79.899 Other long term (current) drug therapy
CPT/HCPCS: 45385; 45380; 45381; 43249; 43239; 88305; 88313; 88342; C1726; J2003; J2704

== ENCOUNTER → 2025-02-25 07:48 | Outpatient (BNV) | payer MEDICARE, MEDICAID, SELFPAY | PROVIDERS: Visit Provider Internal Medicine Gastroenterology | DX: K21.00 Gastro-esophageal reflux disease with esophagitis, without bleeding (principal); K22.2 Esophageal obstruction; K29.70 Gastritis, unspecified, without bleeding; K29.80 Duodenitis without bleeding; K50.90 Crohn's disease, unspecified, without complications; D12.0 Benign neoplasm of cecum; D12.8 Benign neoplasm of rectum; K64.0 First degree hemorrhoids; D12.2 Benign neoplasm of ascending colon | CPT/HCPCS: 43249; 45380; 45381; 45385 ==

== ENCOUNTER 2025-03-17 11:01 | Outpatient (REF) | payer MEDICARE, MEDICAID, SELFPAY ==
--- OUTSIDE RECORDS SUMMARY | 2025-03-17 12:47 | XMS_ITS | Patient Health Record ---
Author Organization [facility] Address [address] [place] [address] Support Name Relationship Address Phone Estela Chan Emergency Contact [address] [place] [address] Augusta Salas Guarantor Unknown Reason [...] End Date MEDICARE B [address] [facility] [place] [id number] [phone] [id number] Augusta Salas Self - patient is the insured [place] [employer] Medicaid [address] [place] [address] [phone] [id number] Augusta Salas Self - patient is the insured
== END 2025-03-17 11:02 | disposition home or self-care (01) ==
LOC: HO.BBR 11:01
PROVIDERS: Visit Provider Internal Medicine Medical Oncology
DX: D75.1 Secondary polycythemia (principal)
CPT/HCPCS: 85014; 85018; 99195

== ENCOUNTER 2025-04-12 12:28 | Outpatient (AMB) | payer MEDICARE, MEDICAID, SELFPAY ==
--- NOTE | 2025-04-12 12:40 | MHC.OFFVIS ---
Vital Signs 04/12/25 12:44 Height 5 ft 2 in Weight 154 lb 5.177 oz BMI 28.2 BP 93/67 Blood Pressure Location Lt brachial Position Sitting Pulse 74 Intake Visit Reasons: f/u Crohns Intake Note: Augusta presents in the office as a follow up for Crohns. CC: States that her BP is so low during her infusions. Her BP was in the 80s/50s and she states that this is a big issue. She states she was having issues swallowing and issues with pains in the throat. Watch Case Polisher Required: No Allergies aspirin (ASA) Allergy (Mild, Verified 04/12/25 12:44) GI UPSET, nausea and vomiting HPI HPI f/u Crohns: Details: 65 yr old f being seen for f/u for crohns RECAP: had colonoscopy 01/2017 with ileitis and tubular adenoma removed capsule endoscopy with small bowel erosions CT with descending/sigmoid colitis raised calprotectin then commenced on entyvio 03/2018 entyvio level 12/2016 good 17, no ab detected monitr test - remission fecal leslie 05/2019- <15 VCE: no erosions, polyp seen in colon colonoscopy 02/2019- polyps removed, bx taken were negative HM: received pneumonia vaccine, TB spot neg, lichen sclerosis of vulva she was getting pain after urination, has seen urology for hematuria with inconclusive findings, i tried to order MR urogram had issues at [facility] ordering this-so Ct urogram ordered CT urogram: 08/2019--normal kidneys and bladder, stable adrenal adenoma left side, normal GI tract 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 I checked labs and fecal calprotectin was nml, CRP negative NRT was ordered but not covered by insurance EGD/sigmoidoscopy- 11/21 --colon looked normal, EGD with hamartomatous polyp removed from pyloric region EGD/colo 01/2025: Endoscopy Findings: UES stricture gastritis esophagitis duodenitis Colonoscopy Findings: colon polyps internal hemorrhoids BX:increased lymphocytes in Esophagus, tubular adenoma INTERIM: still has dysphagia feels like muscles are noe she has foaming of the mouth pain from epigastrium to the back no obvious triggers also having headaches, waiting to see neuro ? MRI coming up EXAM: GENERAL: The patient is well developed and nontoxic. VITAL SIGNS:see workflow HEENT: Nonicteric sclerae, PERRLA, EOMI. Oropharynx clear. Moist mucous membranes. Conjunctivae appear well perfused. No thyroid mass. CHEST: Chest wall is nontender. HEART: Regular rate and rhythm without murmurs. LUNGS: Clear to auscultation bilaterally. ABDOMEN: Soft, positive bowel sounds, tender LUQ and flank, no organomegaly. SKIN: No rash, no excessive bruising, petechiae, or purpura. NEUROLOGIC: Cranial nerves II-XII intact without motor/sensory deficit. A/P: 1/ Crohn''s disease of both small and large intestine-- breakthru with entyvio incl scleritis now on remicade-- 2/ refractory GERD like sx with increased lymphocytes ? crohns of esophagus or 2/2 GERD PLAN: 1/ cont remicade 5 mg/kg , 2/ trial of budesonide slurry and see if helps, if not repeat EGD 3/ cont with PPI for the moment PFSH Medical History Neck pain Back pain at L4-L5 level Migraines Nausea and vomiting Depression Anxiety H/O hematuria Crohn's disease Surgical History H/O hand surgery H/O brain surgery Hx of breast reduction, elective History of partial hysterectomy Hx of endoscopy History of colonoscopy H/O removal of cyst Family History Father Cancer Mother Hx of acute heart failure Social History Household Members: Children Housing: House Are you a primary vp care management to a significant other at home: No Do you presently have visiting nurse or other home services: No Patient Tobacco Use Status: Current everyday Tobacco user Tobacco use type: Cigarette Cigarettes Per Day: 2 Substance Use Type: Marijuana service: No Current occupational status: unemployed Physical Exam Vital Signs: Last Vital Signs Pulse 74 04/12/25 12:44 BP 93/67 04/12/25 12:44 BMI result Body Mass Index 28.2 Assessment & Plan Assessment & Plan (1) Crohn's disease: Code(s): K50.90 - Crohn's disease, unspecified, without complications Category: Medical Qualifiers: Gastrointestinal tract location: unspecified location Digestive disease complication type: unspecified complication Qualified Code(s): K50.919 - Crohn's disease, unspecified, with unspecified complications Plan: as above Medications: New budesonide (Pulmicort) mix with apple sauce or honey 0.5 mg (2 mL) inhalation DAILY 60 mL 0RF Magic Mouthwash Diphen/Lido/Antacid 1:1:1 Lidocaine Viscous 2 % 80mL; diphenhydramine 12.5 mg/5 mL 80mL; aluminum-mag hydrox-simeth [id number]/5mL 80mL 10 mL PO BID 240 mL 2RF Coding Level of Care Code Est Pt Level 3 (89849) Diagnoses Crohn's disease with complication, unspecified gastrointestinal tract location K50.919 Gastrointestinal tract location: unspecified location Digestive disease complication type: unspecified complication
[2025-04-12 12:44] VITALS: BP 93/67; PULSE 74; BMI 28.2
--- OUTSIDE RECORDS SUMMARY | 2025-04-12 13:25 | XMS_ITS | Clinical Summary ---
Author Organization [facility] Address [address] [place] [address] Phone Care Team Providers Care Senior Category Manager Name Role Phone Rocio Palmer MD Primary Care Provider Allergies No known active allergies Encounters Date Type Department Care Team Description 03/07/2025 11:09 AM EDT - 03/07/2025 1:44 PM EDT Emergency [facility] Emergency [address] [place] [address] Luis Miguel Randolph MD Esophagitis (Primary Dx); Constipation, unspecified constipation type Discharge Disposition: Home or Self Care from Last 3 Months Medical History Medical History Date Comments GERD (gastroesophageal reflux disease) Social History Tobacco Use Types Packs/Day Years Used Date Smoking Tobacco: Never Assessed Comments Unknown Sex and Gender Information Value Date Recorded Sex Assigned at Not on file Legal Sex Female 11:37 PM EST Gender Identity Not on file Sexual Orientation Not on file Obstetrics History Last Filed Vital Signs Vital Sign Reading Time Taken Comments Blood Pressure 112/63 03/07/2025 1:39 PM EDT Pulse 66 03/07/2025 1:39 PM EDT Temperature 36.7 C (98.1 F) 03/07/2025 1:39 PM EDT Respiratory Rate 18 03/07/2025 1:39 PM EDT Oxygen Saturation 98% 03/07/2025 1:39 PM EDT Inhaled Oxygen Concentration - - Weight 71.2 kg (157 lb) 03/07/2025 12:07 PM EDT Height 157.5 cm (5' 2 ) 03/07/2025 12:07 PM EDT Body Mass Index 28.72 03/07/2025 12:07 PM EDT Plan of Treatment Health Maintenance Due Date Last Done Comments Breast Cancer Screening 1960 Cervical Cancer Screening: Pap Smear 1983 DTaP,Tdap,and Td Vaccines (2 - Td or Tdap) 07/15/2018 07/15/2008 Pneumococcal Vaccine: 50+ Years (2 of 2 - PCV) 10/28/2018 10/28/2017 Zoster Vaccines (2 of 2) 04/10/2019 02/13/2019 RSV Immunization Adult Patients (1 - Risk 60-74 years 1-dose series) 2022 Cholesterol Screening (Lipid Panel) 09/02/2022 Colorectal Cancer Screening: Colonoscopy 09/02/2022 Depression Screening 09/02/2022 HIV Screening 09/02/2022 Hepatitis C Screening 09/02/2022 Medicare Annual Wellness Visit 09/02/2022 Social Influencers of Health Screening 09/02/2022 COVID-19 Vaccine ( season) 2024 09/10/2023, 10/23/2022, 08/30/2021, Additional history exists Influenza Vaccine (#1) 2025 , 10/23/2022, 08/30/2021, Additional history exists Hepatitis A Vaccines Completed 08/04/2020, 01/02/20 18 Hepatitis B Vaccines Completed 05/23/2021, 08/04/2020, 01/01/2018 HIB Vaccines Aged Out No longer eligi [...] to complete this topic RSV Immunization Patients Under 20 months Aged Out No longer eligible based on patient's age to complete this topic Varicella Vaccines Aged Out No longer eligible based on patient's age to complete this topic Procedures Procedure Name Priority Date/Time Associated Diagnosis Comments ECG ANNOTATED 03/12/2025 ECG ANNOTATED 03/10/2025 TROPONIN I HIGH SENSITIVITY STAT 03/07/2025 12:[address] ABDOMEN PELVIS W CONTRAST STAT 03/07/2025 11:58 AM EDT ECG 12-LEAD STAT 03/07/2025 11:45 AM EDT TROPONIN I HIGH SENSITIVITY STAT 03/07/2025 11:31 AM EDT CBC WITH AUTO DIFFERENTIAL STAT 03/07/2025 10:06 AM EDT LIPASE STAT 03/07/2025 10:06 AM EDT COMPREHENSIVE METABOLIC PANEL STAT 03/07/2025 10:06 AM EDT CBC AND DIFFERENTIAL STAT 03/07/2025 10:06 AM EDT ECG 12-LEAD STAT 03/07/2025 10:03 AM EDT from Last 3 Months Results * ECG-Annotated (03/12/2025) Only the most recent of2 resultswithin the time period is included. us Provider Onbase MD ECG ORDERABLES Final Result * Troponin I high sensitivity (03/07/2025 12:44 PM EDT) Only the most recent of2 resultswithin the time period is included. High Sensitivity Troponin I 4 <=54 ng/L LAB CHEMISTRY METHOD 03/07/2025 1:57 PM EDT [facility] Blood Venous blood specimen / Unknown Venipuncture / Unknown 03/07/2025 12:44 PM EDT 03/07/2025 1:22 PM EDT Narrative [facility] - 03/07/2025 1:57 PM EDT High levels of biotin in samples may falsely decrease hsTroponin values. Use caution when interpreting hsTroponin results in patients taking biotin who exhibit renal impairment (eGFR <60) or in patients taking more than 20 mg/day of biotin. us Isabela VELIZ LAB BLOOD ORDERABLES Final Re sult [facility] [address] [place] [address], [place] [phone] * CT Abdomen Pelvis w Contrast (03/07/2025 11:58 AM EDT) Anatomical Region Laterality Modality Body Computed Tomogra phy 03/07/2025 12:4 6 PM EDT Impressions 03/07/2025 12:56 PM EDT Small hiatal hernia with circumferential thickening of the distal esophagus which may reflect esophagitis. Endoscopy could evaluate further. Large stool throughout the colon. Correlate for constipation. -------- FINAL REPORT -------- Dictated By: ANNIE DURAN Dictated Date: 03/07/2025 12:46 ET Assigned Physician: ANNIE DURAN Reviewed and Electronically Signed By: ANNIE DURAN Signed Date: 03/07/2025 12:56 ET Workstation ID: [id number] Transcribed By: Self Edit Transcribed Date: 03/07/2025 12:46 ET Narrative 03/07/2025 12:56 PM EDT PROCEDURE: CT ABDOMEN/PELVIS INDICATION: Pain TECHNIQUE: CT of the abdomen and pelvis following the intravenous administration of 90cc Isovue 370. Multiplanar reformats. The examination was performed utilizing dose reduction techniques. Total DLP 945 COMPARISON: 05/05/2021 FINDINGS: LOWER THORAX: Bibasilar atelectasis. Small hiatal hernia with circumferential thickening of the distal esophagus. HEPATOBILIARY: Right hepatic hemangioma is unchanged. No new liver lesions. Gallbladder and biliary tree are within normal limits. SPLEEN: Splenic hypodensities are unchanged, likely cysts or hemangiomas. PANCREAS: No focal mass or ductal dilatation. ADRENALS: Bilateral adrenal nodules are unchanged, likely adenomas. KIDNEYS/URETERS: Punctate bilateral nonobstructive renal calculi. No ureteral calculi or hydronephrosis. No solid renal mass. Bilateral renal cysts. PELVIC ORGANS/BLADDER: Hysterectomy. Bladder is decompressed. Ovaries are normal. PERITONEUM / RETROPERITONEUM: No ascites or free air. No retroperitoneal lymphadenopathy. VESSELS: Abdominal aorta is normal in size. Portal vein is patent. GI TRACT: No bowel obstruction or wall thickening. Large stool throughout the colon. Normal appendix. BONES AND SOFT TISSUES: Scattered degenerative changes seen throughout the bones. Soft tissues are unremarkable. Procedure Note Annie Duran MD - 03/07/2025 PROCEDURE: CT ABDOMEN/PELVIS INDICATION: Pain TECHNIQUE: CT of the abdomen and pelvis following the intravenousadministration of 90cc Isovue 370. Multiplanar reformats. The examinationwas performed utilizing dose reduction techniques. Total DLP 945 COMPARISON: 05/05/2021 FINDINGS: LOWER THORAX: Bibasilar atelectasis. Small hiatal hernia withcircumferential thickening of the distal esophagus. HEPATOBILIARY: Right hepatic hemangioma is unchanged. No new liverlesions. Gallbladder and biliary tree are within normal limits. SPLEEN: Splenic hypodensities are unchanged, likely cysts orhemangiomas. PANCREAS: No focal mass or ductal dilatation. ADRENALS: Bilateral adrenal nodules are unchanged, likely adenomas. KIDNEYS/URETERS: Punctate bilateral nonobstructive renal calculi. Noureteral calculi or hydronephrosis. No solid renal mass. Bilateral renalcysts. PELVIC ORGANS/BLADDER: Hysterectomy. Bladder is decompressed. Ovariesare normal. PERITONEUM / RETROPERITONEUM: No ascites or free air. No retroperitoneallymphadenopathy. VESSELS: Abdominal aorta is normal in size. Portal vein is patent. GI TRACT: No bowel obstruction or wall thickening. Large stool throughoutthe colon. Normal appendix. BONES AND SOFT TISSUES: Scattered degenerative changes seen throughout thebones. Soft tissues are unremarkable. IMPRESSION: Small hiatal hernia with circumferential thickening of the distalesophagus which may reflect esophagitis. Endoscopy could evaluatefurther. Large stool throughout the colon. Correlate for constipation. -------- FINAL REPORT -------- Dictated By: ANNIE DURAN Dictated Date: 03/07/2025 12:46 ET Assigned Physician: ANNIE DURAN Reviewed and Electronically Signed By: ANNIE DURAN Signed Date: 03/07/2025 12:56 ET Workstation ID: [id number] Transcribed By: Self Edit Transcribed Date: 03/07/2025 12:46 ET Isabela VELIZ IMG CT PROCEDURES Final Resul t * ECG 12 lead (03/07/2025 11:45 AM EDT) Only the most recent of2 resultswithin the time period is included. Pathologist [facility] [place] Ventricular Rate ECG 65 BPM GEMUSE Atrial Rate 65 BPM GEMUSE P-R Interval 160 ms GEMUSE QRS Duration 84 ms GEMUSE Q-T Interval 398 ms GEMUSE QTc 413 ms GEMUSE P Wave [place] 23 degrees GEMUSE R [place] 15 degrees GEMUSE T [place] 27 degrees GEMUSE ECG Interpretation Normal sinus rhythm When compared with ECG of 07-MAR-2025 10:03, (unconfirmed) No significant change was found Confirmed by GLADYS OWEN ([id number]) on 03/07/2025 2:05:55 PM GEMUSE 03/07/2025 11:4 5 AM EDT 03/07/2025 2:05 PM EDT Isabela VELIZ ECG ORDERABLES Final Result GEMUSE * (ABNORMAL) CBC auto differential (03/07/2025 10:06 AM EDT) [facility] WBC 3.9(L) 4.8 - 10.8 K/mcL LAB HEMETOLOGY METHOD 03/07/2025 10:34 AM EDT [facility] RBC 4.70 3.80 - 4.80 M/mcL LAB HEMETOLOGY METHOD 03/07/2025 10:34 AM EDT [facility] Hemoglobin 13.8 11.5 - 16.0 g/dL LAB HEMETOLOGY METHOD 03/07/2025 10:34 AM EDT [facility] Hematocrit 42.8 35.0 - 47.0 % LAB HEMETOLOGY METHOD 03/07/2025 10:34 AM EDT [facility] MCV 91.3 79.0 - 98.0 FL LAB HEMETOLOGY METHOD 03/07/2025 10:34 AM [facility] MCH 29.4 27.0 - 32.0 pcg LAB HEMETOLOGY METHOD 03/07/2025 10:34 AM [facility] MCHC 32.2 32.0 - 37.0 g/dL LAB HEMETOLOGY METHOD 03/07/2025 10:34 AM [facility] RDW 15.9(H) 11.0 - 15.0 % LAB HEMETOLOGY METHOD 03/07/2025 10:34 AM [facility] Platelets 237 130 - 400 K/mcL LAB HEMETOLOGY METHOD 03/07/2025 10:34 AM [facility] MPV 9.5 7.0 - 11.0 FL LAB HEMETOLOGY METHOD 03/07/2025 10:34 AM [facility] NRBC 0.0 <1.0 % LAB HEMETOLOGY METHOD 03/07/2025 10:34 AM [facility] NRBC Absolute 0.00 <0.10 K/mcL LAB HEMETOLOGY METHOD 03/07/2025 10:34 AM [facility] Neutrophils Relative 64.9 % LAB HEMETOLOGY METHOD 03/07/2025 10:34 AM [facility] Lymphocytes Relative 23.9 % LAB HEMETOLOGY METHOD 03/07/2025 10:34 AM [facility] Monocytes Relative 8.1 % LAB HEMETOLOGY METHOD 03/07/2025 10:34 AM [facility] Eosinophils Relative 2.3 % LAB HEMETOLOGY METHOD 03/07/2025 10:34 AM [facility] Basophils Relative 0.5 % LAB HEMETOLOGY METHOD 03/07/2025 10:34 AM [facility] Immature Granulocytes Relative 0.3 % LAB HEMETOLOGY METHOD 03/07/2025 10:34 AM EDT [facility] Neutrophils Absolute 2.56 1.50 - 7.00 K/[facility] LAB HEMETOLOGY METHOD 03/07/2025 10:34 AM EDT [facility] Lymphocytes Absolute 0.94(L) 1.00 - 5.00 K/mcL LAB HEMETOLOGY METHOD 03/07/2025 10:34 AM EDT [facility] Monocytes Absolute 0.32 0.20 - 1.00 K/[facility] LAB HEMETOLOGY METHOD 03/07/2025 10:34 AM EDT [facility] Eosinophils Absolute 0.09 0.00 - 0.50 K/[facility] HEMETOLOGY METHOD 03/07/2025 10:34 AM EDT [facility] Basophils Absolute 0.02 0.00 - 0.20 K/mcL LAB HEMETOLOGY METHOD 03/07/2025 10:34 AM EDT [facility] Immature Granulocytes Absolute 0.01 0.00 - 0.03 K/mcL LAB HEMETOLOGY METHOD 03/07/2025 10:34 AM EDT [facility] Blood Venous blood specimen / Unknown Venipuncture / Unknown 03/07/2025 10:06 AM EDT 03/07/2025 10:26 AM EDT us Luis Miguel Randolph MD LAB BLOOD ORDERABLES Final Resu lt [facility]) [facility] [address] [place] [address], * Lipase (03/07/2025 10:06 AM EDT) Lipase 35 13 - 75 unit/L LAB CHEMISTRY METHOD 03/07/2025 10:51 AM EDT [facility] Blood Venous blood specimen / Unknown Venipuncture / Unknown 03/07/2025 10:06 AM EDT 03/07/2025 10:26 AM EDT us Luis Miguel Randolph MD LAB BLOOD ORDERABLES Final Resu lt [facility] [address] [place] [address], [place] [phone] * Comprehensive metabolic panel (03/07/2025 10:06 AM EDT) Sodium 140 133 - 145 mmol/L LAB CHEMISTRY METHOD 03/07/2025 11:24 AM [facility] Potassium 4.4 3.5 - 5.5 mmol/L LAB CHEMISTRY METHOD 03/07/2025 11:24 AM [facility] Chloride 109 96 - 110 mmol/L LAB CHEMISTRY METHOD 03/07/2025 11:24 AM [facility] CO2 28 21 - 32 mmol/L LAB CHEMISTRY METHOD 03/07/2025 11:24 AM [facility] Anion Gap 3 3 - 11 LAB CHEMISTRY METHOD 03/07/2025 11:24 AM [facility] Glucose 96 70 - 100 mg/dL LAB CHEMISTRY METHOD 03/07/2025 11:24 AM [facility] BUN 17 5 - 25 mg/dL LAB CHEMISTRY METHOD 03/07/2025 11:24 AM [facility] Creatinine 0.58 0.50 - 1.10 mg/dL LAB CHEMISTRY METHOD 03/07/2025 11:24 AM [facility] eGFR 102 >=60 mL/min/1. 73m2 LAB CHEMISTRY METHOD 03/07/2025 11:24 AM [facility] Comment:Calculation based on the Chronic Kidney Disease Epidemiology Collaboration (CKD-EPI) equation refit without adjustment for race. BUN/Creatinine Ratio 29.3 LAB CHEMISTRY METHOD 03/07/2025 11:24 AM [facility] Calcium 9.0 8.5 - 10.5 mg/dL LAB CHEMISTRY METHOD 03/07/2025 11:24 AM T [facility] AST (SGOT) 13 10 - 42 unit/L LAB CHEMISTRY METHOD 03/07/2025 11:24 AM [facility] ALT (SGPT) 18 10 - 60 unit/L LAB CHEMISTRY METHOD 03/07/2025 11:24 AM [facility] Alkaline Phosphatase 76 42 - 121 unit/L LAB CHEMISTRY METHOD 03/07/2025 11:24 AM [facility] Total Protein 7.1 6.0 - 8.0 g/dL LAB CHEMISTRY METHOD 03/07/2025 11:24 AM [facility] Albumin 3.6 3.2 - 5.0 g/dL LAB CHEMISTRY METHOD 03/07/2025 11:24 AM [facility] Total Bilirubin 0.3 0.0 - 1.4 mg/dL LAB CHEMISTRY METHOD 03/07/2025 11:24 AM [facility] Blood Venous blood specimen / Unknown Venipuncture / Unknown 03/07/2025 10:06 AM EDT 03/07/2025 10:26 AM EDT us Luis Miguel Randolph MD LAB BLOOD ORDERABLES Final Resu lt [facility] [address] [place] [address], from Last 3 Months Insurance MEDICARE MEDICAID - [place] Care Teams Senior Category Manager Relationship Specialty Start Date End Date Rocio Palmer MD [address], [place] PCP - General Internal Medicine 11/16/20
--- OUTSIDE RECORDS SUMMARY | 2025-04-12 13:25 | XMS_ITS | Patient Health Record ---
Author Organization [facility] Address [address] [place] [address] Support Name Relationship Address Phone Estela Chan Emergency Contact [address] [place] [address] Augusta Salas Guarantor Unknown Reason [...] End Date MEDICARE B [address] [facility] [place] [id number] Augusta Salas Self - patient is the insured [place] Medicaid [address] [place] [address] [id number] Augusta Salas Self - patient is the insured
--- OUTSIDE RECORDS SUMMARY | 2025-04-12 13:25 | XMS_ITS | Clinical Summary ---
Author Organization [facility] Address [address] [place] [address] Care Team Providers Care Manager Of Internal Name Role Phone Rocio Palmer MD Primary [...] (1 of 2) 2012 Influenza Vaccine (#1) 2025 RSV Adult > 60+ Yrs or Pregn [...] age to complete this topic Care Teams Manager Of Internal Relationship Specialty Start Date End Date Rocio Palmer MD [address] [place] [phone] PCP - General Internal Medicine 11/16/20
== END 2025-04-12 14:20 | disposition home or self-care (01) ==
LOC: HO.HGI 12:29
PROVIDERS: PCP Internal Medicine; Visit Provider Internal Medicine Gastroenterology
DX: K50.919 Crohn's disease, unspecified, with unspecified complications (principal)
CPT/HCPCS: 99213

== ENCOUNTER → 2025-04-12 12:28 | Outpatient (BNVA) | payer MEDICARE, MEDICAID, SELFPAY | PROVIDERS: PCP Internal Medicine; Visit Provider Internal Medicine Gastroenterology | DX: K50.10 Crohn's disease of large intestine without complications (principal); K50.00 Crohn's disease of small intestine without complications; Z79.899 Other long term (current) drug therapy | CPT/HCPCS: 99212 ==

== ENCOUNTER 2025-05-18 10:04 | Outpatient (REF) | payer MEDICARE, MEDICAID, SELFPAY ==
--- OUTSIDE RECORDS SUMMARY | 2025-05-18 11:17 | XMS_ITS | Clinical Summary ---
Author Organization [facility] Address [address] [place] [address] Phone Care Team Providers Care Nurse Practitioner Per Diem Name Role Phone Rocio Palmer MD Primary Care Provider [phone] Allergies No known active allergies Encounters Date Type Department Care Team Description 03/07/2025 11:09 AM EDT - 03/07/2025 1:44 PM EDT Emergency [facility] Emergency [address] [place] [address] Luis Miguel Randolph MD Esophagitis [...] Panel) 09/02/2022 Colorectal Cancer Screening: Colonoscopy 09/02/2022 HIV Screening 09/02/2022 Hepatitis C Screening 09/02/2022 Medicare Annual Wellness Visit 09/02/2022 Social Influencers of Health Screening 09/02/2022 COVID-19 Vaccine ( season) 2024 09/10/2023, 10/23/2022, 08/30/2021, Additional history exists Depression Screening 09/30/2024 Influenza Vaccine (#1) 2025 , 10/23/2022, 08/30/2021, [...] LAB CHEMISTRY METHOD 03/07/2025 1:57 PM EDT [facility] Blood Venous blood specimen / Unknown Venipuncture / Unknown 03/07/2025 12:44 PM EDT 03/07/2025 1:22 PM EDT Narrative [facility] - 03/07/2025 1:57 PM EDT High levels of biotin in samples may falsely decrease hsTroponin values. Use caution when interpreting hsTroponin results in patients taking biotin who exhibit renal impairment (eGFR <60) or in patients taking more than 20 mg/day of biotin. us Isabela VELIZ LAB BLOOD ORDERABLES Final Re sult [facility]) [facility] [address] [place] [address], [place] [phone] * CT Abdomen Pelvis w Contrast (03/07/2025 [...] Signed Date: 03/07/2025 12:56 ET Workstation ID: [id number] Transcribed By: Self Edit Transcribed Date: 03/07/2025 [...] Signed Date: 03/07/2025 12:56 ET Workstation ID: [id number] Transcribed By: Self Edit Transcribed Date: 03/07/2025 [...] GEMUSE QTc 413 ms GEMUSE P Wave [place] 23 degrees GEMUSE R [place] 15 degrees GEMUSE T [place] 27 degrees GEMUSE ECG Interpretation Normal sinus rhythm When compared with ECG of 07-MAR-2025 10:03, (unconfirmed) No significant change was found Confirmed by GLADYS OWEN ([id number]) on 03/07/2025 2:05:55 PM GEMUSE 03/07/2025 11:4 5 AM EDT 03/07/2025 2:05 PM EDT Isabela VELIZ ECG ORDERABLES Final Result GEMUSE * (ABNORMAL) CBC auto differential (03/07/2025 10:06 AM EDT) [facility] WBC 3.9(L) 4.8 - 10.8 K/mcL LAB HEMETOLOGY METHOD 03/07/2025 10:34 AM EDT [facility] RBC 4.70 3.80 - 4.80 M/mcL LAB HEMETOLOGY METHOD 03/07/2025 10:34 AM EDT [facility] Hemoglobin 13.8 11.5 - 16.0 g/dL LAB HEMETOLOGY METHOD 03/07/2025 10:34 AM EDT [facility] Hematocrit 42.8 35.0 - 47.0 % LAB HEMETOLOGY METHOD 03/07/2025 10:34 AM EDT [facility] MCV 91.3 79.0 - 98.0 FL LAB HEMETOLOGY METHOD 03/07/2025 10:34 AM [facility] MCH 29.4 27.0 - 32.0 pcg LAB HEMETOLOGY METHOD 03/07/2025 10:34 AM [facility] MCHC 32.2 32.0 - 37.0 g/dL LAB HEMETOLOGY METHOD 03/07/2025 10:34 AM [facility] RDW 15.9(H) 11.0 - 15.0 % LAB HEMETOLOGY METHOD 03/07/2025 10:34 AM [facility] Platelets 237 130 - 400 K/mcL LAB HEMETOLOGY METHOD 03/07/2025 10:34 AM [facility] MPV 9.5 7.0 - 11.0 FL LAB HEMETOLOGY METHOD 03/07/2025 10:34 AM [facility] NRBC 0.0 <1.0 % LAB HEMETOLOGY METHOD 03/07/2025 10:34 AM [facility] NRBC Absolute 0.00 <0.10 K/mcL LAB HEMETOLOGY METHOD 03/07/2025 10:34 AM [facility] Neutrophils Relative 64.9 % LAB HEMETOLOGY METHOD 03/07/2025 10:34 AM [facility] Lymphocytes Relative 23.9 % LAB HEMETOLOGY METHOD 03/07/2025 10:34 AM [facility] Monocytes Relative 8.1 % LAB HEMETOLOGY METHOD 03/07/2025 10:34 AM [facility] Eosinophils Relative 2.3 % LAB HEMETOLOGY METHOD 03/07/2025 10:34 AM [facility] Basophils Relative 0.5 % LAB HEMETOLOGY METHOD 03/07/2025 10:34 AM [facility] Immature Granulocytes Relative 0.3 % LAB HEMETOLOGY METHOD 03/07/2025 10:34 AM EDT [facility] Neutrophils Absolute 2.56 1.50 - 7.00 K/[facility] LAB HEMETOLOGY METHOD 03/07/2025 10:34 AM EDT [facility] Lymphocytes Absolute 0.94(L) 1.00 - 5.00 K/mcL LAB HEMETOLOGY METHOD 03/07/2025 10:34 AM EDT [facility] Monocytes Absolute 0.32 0.20 - 1.00 K/[facility] LAB HEMETOLOGY METHOD 03/07/2025 10:34 AM EDT [facility] Eosinophils Absolute 0.09 0.00 - 0.50 K/[facility] LAB HEMETOLOGY METHOD 03/07/2025 10:34 AM EDT [facility] Basophils Absolute 0.02 0.00 - 0.20 K/mcL LAB HEMETOLOGY METHOD 03/07/2025 10:34 AM EDT [facility] Immature Granulocytes Absolute 0.01 0.00 - 0.03 K/mcL LAB HEMETOLOGY METHOD 03/07/2025 10:34 AM EDT [facility] Blood Venous blood specimen / Unknown Venipuncture / Unknown 03/07/2025 10:06 AM EDT 03/07/2025 10:26 AM EDT us Luis Miguel Randolph MD LAB BLOOD ORDERABLES Final Resu lt [facility]) [facility] [address] [place] [address], * Lipase (03/07/2025 10:06 AM EDT) Lipase 35 13 - 75 unit/L LAB CHEMISTRY METHOD 03/07/2025 10:51 AM EDT [facility] Blood Venous blood specimen / Unknown Venipuncture / Unknown 03/07/2025 10:06 AM EDT 03/07/2025 10:26 AM EDT us Luis Miguel Randolph MD LAB BLOOD ORDERABLES Final Resu lt [facility] [address] [place] [address], [place] [phone] * Comprehensive metabolic panel (03/07/2025 10:06 AM EDT) Sodium 140 133 - 145 mmol/L LAB CHEMISTRY METHOD 03/07/2025 11:24 AM [facility] Potassium 4.4 3.5 - 5.5 mmol/L LAB CHEMISTRY METHOD 03/07/2025 11:24 AM [facility] Chloride 109 96 - 110 mmol/L LAB CHEMISTRY METHOD 03/07/2025 11:24 AM [facility] CO2 28 21 - 32 mmol/L LAB CHEMISTRY METHOD 03/07/2025 11:24 AM [facility] Anion Gap 3 3 - 11 LAB CHEMISTRY METHOD 03/07/2025 11:24 AM [facility] Glucose 96 70 - 100 mg/dL LAB CHEMISTRY METHOD 03/07/2025 11:24 AM [facility] BUN 17 5 - 25 mg/dL LAB CHEMISTRY METHOD 03/07/2025 11:24 AM [facility] Creatinine 0.58 0.50 - 1.10 mg/dL LAB CHEMISTRY METHOD 03/07/2025 11:24 AM [facility] eGFR 102 >=60 mL/min/1. 73m2 LAB CHEMISTRY METHOD 03/07/2025 11:24 AM [facility] Comment:Calculation based on the Chronic Kidney Disease Epidemiology Collaboration (CKD-EPI) equation refit without adjustment for race. BUN/Creatinine Ratio 29.3 LAB CHEMISTRY METHOD 03/07/2025 11:24 AM [facility] Calcium 9.0 8.5 - 10.5 mg/dL LAB CHEMISTRY METHOD 03/07/2025 11:24 AM T [facility] AST (SGOT) 13 10 - 42 unit/L LAB CHEMISTRY METHOD 03/07/2025 11:24 AM [facility] ALT (SGPT) 18 10 - 60 unit/L LAB CHEMISTRY METHOD 03/07/2025 11:24 AM [facility] Alkaline Phosphatase 76 42 - 121 unit/L LAB CHEMISTRY METHOD 03/07/2025 11:24 AM [facility] Total Protein 7.1 6.0 - 8.0 g/dL LAB CHEMISTRY METHOD 03/07/2025 11:24 AM [facility] Albumin 3.6 3.2 - 5.0 g/dL LAB CHEMISTRY METHOD 03/07/2025 11:24 AM [facility] Total Bilirubin 0.3 0.0 - 1.4 mg/dL LAB CHEMISTRY METHOD 03/07/2025 11:24 AM [facility] Blood Venous blood specimen / Unknown Venipuncture / Unknown 03/07/2025 10:06 AM EDT 03/07/2025 10:26 AM EDT us Luis Miguel Randolph MD LAB BLOOD ORDERABLES Final Resu lt [facility] [address] [place] [address], from Last 3 Months Insurance MEDICARE [place]ICA[place] - [place] Care Teams Nurse Practitioner Per Diem Relationship Specialty Start Date End Date Rocio Palmer MD [address], [place] PCP - General Internal Medicine 11/16/20
--- OUTSIDE RECORDS SUMMARY | 2025-05-18 11:17 | XMS_ITS | Clinical Summary ---
Author Organization [facility] Address [address] [place] [address] Care Team Providers Care Banana Expert Name Role Phone Rocio Palmer MD Primary [...] age to complete this topic Care Teams Banana Expert Relationship Specialty Start Date End Date Rocio Palmer MD [address] [place] [phone] PCP - General Internal Medicine 11/16/20
--- OUTSIDE RECORDS SUMMARY | 2025-05-18 11:17 | XMS_ITS | Patient Health Record ---
Author Organization [facility] Address [address] [place] [address] Support Name Relationship Address Phone Estela Chan Emergency Contact [address] [place] [address] Augusta Salas Guarantor Unknown [phone] Reason For Referral No Information Medications Medication SIG (Take, Route, Frequency, Duration) Notes Start Date End Date Status CYMBALTA 60 MG CAPSULE 30 1 DAILY; Duration: 0 *please review for potential update for e-prescription and drug interaction check* 06/22/2010 Active INDOMETHACIN 75 MG CAPSULE 60 1 BID; Duration: 30 *please review for potential update for e-prescription and drug interaction check* 08/29/2010 Active Plan Of Treatment No Information Insurance Providers Payer Name Payer Address Payer Phone Subscriber Number Group Number Insured Name Patient Relationship to Insured Coverage Start Date Coverage End Date MEDICARE B [address] [facility] [place] [id number] [phone] [id number] Augusta Salas Self - patient is the insured [place] [employer] [address] [place] [address] [id number] Augusta Salas Self - patient is the insured
== END 2025-05-18 10:05 | disposition home or self-care (01) ==
LOC: HO.BBR 10:04
PROVIDERS: PCP Internal Medicine; Visit Provider Internal Medicine Medical Oncology
DX: D75.1 Secondary polycythemia (principal)
CPT/HCPCS: 85018; 99195

== ENCOUNTER 2025-07-14 09:57 | Outpatient (REF) | payer MEDICARE, MEDICAID, SELFPAY ==
--- OUTSIDE RECORDS SUMMARY | 2025-07-14 11:45 | XMS_ITS | Clinical Summary ---
Author Organization [facility] Address [address] [place] [address] Care Team Providers Care A/C Technician Name Role Phone Rocio Palmer MD Primary [...] age to complete this topic Care Teams A/C Technician Relationship Specialty Start Date End Date Rocio Palmer MD [address] [place] [phone] PCP - General Internal Medicine 11/16/20
--- OUTSIDE RECORDS SUMMARY | 2025-07-14 11:45 | XMS_ITS | Clinical Summary ---
Author Organization [facility] Address [address] [place] [address] Phone Care Team Providers Care Professor Of Violin Name Role Phone Rocio Palmer MD Primary Care Provider Allergies No known active allergies Medical History Medical History Date Comments GERD [...] Last Done Comments Breast Cancer Screening 1962 Colorectal Cancer Screening: Colonoscopy 1962 Cervical Cancer Screening: Pap Smear 1983 RSV Immunization Adult Patients (1 - Risk 50-74 years 1-dose series) 2012 DTaP,Tdap,and Td Vaccines (2 - Td or Tdap) 07/15/2018 07/15/2008 Pneumococcal Vaccine: 50+ Years (2 of 2 - PCV) 10/28/2018 10/28/2017 Zoster Vaccines (2 of 2) 04/10/2019 02/13/2019 Cholesterol Screening (Lipid Panel) 09/02/2022 HIV Screening 09/02/2022 Hepatitis C Screening 09/02/2022 Medicare Annual Wellness Visit 09/02/2022 Social Influencers of Health Screening 09/02/2022 Depression Screening 09/30/2024 COVID-19 Vaccine ( season) 2025 09/10/2023, 10/23/2022, 08/30/2021, Additional history exists Influenza [...] on patient's age to complete this topic Insurance MEDICARE MEDICAID - [place] Care Teams Professor Of Violin Relationship Specialty Start Date End Date Rocio Palmer MD [address] [place], [place] PCP - General Internal Medicine 11/16/20
--- OUTSIDE RECORDS SUMMARY | 2025-07-14 11:45 | XMS_ITS | Patient Health Record ---
Author Organization [facility] Address [address] [place] [address] Support Name Relationship Address Phone Estela Chan Emergency Contact [address] [place] [address] Augusta Salas Guarantor Unknown [phone] Reason For Referral No Information Medications Medication [...] End Date MEDICARE B [address] [facility] [place] [id number] [phone] [id number] Augusta Salas Self - patient is the insured [place] [employer] [address] [place] [address] [id number] Augusta Salas Self - patient is the insured
== END 2025-07-14 09:58 | disposition home or self-care (01) ==
LOC: HO.BBR 09:57
PROVIDERS: PCP Internal Medicine; Visit Provider Internal Medicine Medical Oncology
DX: D75.1 Secondary polycythemia (principal)
CPT/HCPCS: 85018; 99195

== ENCOUNTER 2025-09-14 13:13 | Outpatient (REF) | payer MEDICARE, MEDICAID, SELFPAY ==
--- OUTSIDE RECORDS SUMMARY | 2025-09-14 17:16 | XMS_ITS | Clinical Summary ---
Author Organization [facility] Prior to 02/27/25 Address [address] [place] [address] Care Team Providers Care Buffing And Sueding Machine Operator Name Role Phone Rocio Palmer MD Primary [...] age to complete this topic Care Teams Buffing And Sueding Machine Operator Relationship Specialty Start Date End Date Rocio Palmer MD [address] [place] [phone] PCP - General Internal Medicine 11/16/20
--- OUTSIDE RECORDS SUMMARY | 2025-09-14 17:16 | XMS_ITS | Patient Health Record ---
Author Organization [facility] Address [address] [place] [address] Support Name Relationship Address Phone Estela Chan Emergency Contact [address] [place] [address] Augusta Salas Guarantor Unknown Reason [...] End Date MEDICARE B [address] [facility] [place] [id number] [phone] [id number] Augusta Salas Self - patient is the insured [place] [employer] [address] [place] [address] [id number] Augusta Salas Self - patient is the insured
--- OUTSIDE RECORDS SUMMARY | 2025-09-14 17:16 | XMS_ITS | Clinical Summary ---
Author Organization [facility] Address [address] [place] [address] Phone Care Team Providers Care Lead Quality Control Technician Name Role Phone Rocio Palmer MD Primary Care Provider [phone] Allergies No known active allergies Medical History Medical History Date Comments GERD (gastroesophageal reflux disease) Social History Tobacco Use Types Packs/Day Years Used Date Smoking Tobacco: Never Assessed Comments Unknown Sex and Gender Information Value Date Recorded Sex Assigned at Not on file Legal Sex Female 11:37 PM EST Gender Identity Not on file Sexual Orientation Not on file Last Filed Vital Signs Vital Sign Reading [...] Insurance MEDICARE MEDICAID - [place] Care Teams Lead Quality Control Technician Relationship Specialty Start Date End Date Rocio Palmer MD [address] [place], [place] PCP - General Internal Medicine 11/16/20
== END 2025-09-14 13:14 ==
LOC: HO.BBR 13:13
PROVIDERS: PCP Internal Medicine; Visit Provider Internal Medicine Medical Oncology
DX: D75.1 Secondary polycythemia (principal)
CPT/HCPCS: 85018